=== PATIENT | male | born 1940 | race Caucasian/White ===

== ENCOUNTER 2018-12-22 08:07 | Emergency (ER) | payer MEDICARE, BC ==
[~2018-12-22] VITALS: Ht 182.9 cm; Wt 83.9 kg
--- NOTE | 2018-12-22 08:19 | NUR ---
PT IS IN ROOM #2B. DR CAGE EVALUATED THE PT.
[2018-12-22] MEDS ORDERED: RIVA6CAP5 PO (08:22)
[2018-12-22] MEDS ORDERED: NEOMY/BACITRA/POLYMYXIN B OINT UD PACKET TP ONE (08:36)
--- NOTE | 2018-12-22 11:01 | NUR ---
PT WAS D/C TO HOME . D/C INSTRUCTIONS GIVEN TO THE PT AND TO HIS SON.
[2018-12-22 11:11] VITALS: BP 129/78
== END 2018-12-22 11:14 | disposition home or self-care (01) ==
LOC: ER 08:07
DX: M25.551 Pain in right hip (principal); M25.521 Pain in right elbow; E11.9 Type 2 diabetes mellitus without complications; Z79.899 Other long term (current) drug therapy; W06.XXXA Fall from bed, initial encounter; Y93.89 Activity, other specified; Y92.89 Other specified places as the place of occurrence of the external cause; Y99.8 Other external cause status
CPT/HCPCS: 70450; 72192; 73080; 73502; A4663

== ENCOUNTER 2018-12-23 17:00 | Inpatient (IN) | payer MEDICARE, BC ==
[~2018-12-23] VITALS: Ht 185.4 cm; Wt 85.7 kg
[~2018-12-23 17:00] MED LIST: RIVA6CAP5 PO
--- NOTE | 2018-12-23 17:13 | NUR ---
pt denies pt having diabetes.
[2018-12-23] MEDS ORDERED: IV NORMAL SALINE 500 ML BAG IV ONE (17:15)
--- NOTE | 2018-12-23 17:21 | NUR ---
Nursing Accounts Clerk contacted, requested 1:1 sitter for the evening due to the patient experiencing multiple falls today and yesterday requiring 2 hospital visits in 24 hours.
[2018-12-23 17:36] LABS: BASOPHILS % (AUTO) 0.3 % (0.0-2.0); EOSINOPHILS # (AUTO) 0.1 K/uL (0.0-0.7); EOSINOPHILS % (AUTO) 0.7 % (0.0-7.0); HEMATOCRIT 37.5 % (36.7-47.1); HEMOGLOBIN 12.7 g/dL (12.5-16.3); LYMPHOCYTES % (AUTO) 11.9 % (20.5-51.5); MEAN CORPUSCULAR HEMOGLOBIN 30.5 uug (23.8-33.4); MEAN CORPUSCULAR HGB CONC 34 g/dL (32.5-36.3); MEAN CORPUSCULAR VOLUME 89.8 fL (73.0-96.2); MONOCYTES # (AUTO) 0.6 K/uL (2.0-10.0); MONOCYTES % (AUTO) 6.6 % (0.0-11.0); NEUTROPHILS % (AUTO) 80.5 % (38.5-71.5); PLATELET COUNT (AUTO) 106 K/uL (152-348); RED BLOOD CELL COUNT(AUTO) 4.17 MIL/uL (4.06-5.63); WHITE BLOOD COUNT (AUTO) 8.7 K/uL (3.6-10.2)
[2018-12-23 17:48] LABS: CARBON DIOXIDE 31 mmol/L (21-32); CHLORIDE 105 mmol/L (98-107); CREATININE 1.2 mg/dL (0.6-1.3); GLUCOSE 178 mg/dL (74-106); POTASSIUM 4.2 mmol/L (3.5-5.1); UREA NITROGEN, BLOOD 21 mg/dL (7-18)
[2018-12-23 17:49] LABS: *BILIRUBIN,URIN NEGATIVE (NEGATIVE); *BLOOD, URINE 2+ (NEGATIVE); *CLARITY,URINE CLEAR (CLEAR); *COLOR,URINE DARK YELLOW (YELLOW); *KETONES,URINE NEGATIVE (NEGATIVE); *UROBILINOGEN,URINE 0.2 E.U./dl (NORMAL); LEUKOCYTE ESTERASE ,URINE NEGATIVE (NEGATIVE); NITRITE, URINE NEGATIVE (NEGATIVE); UGLUCOSE NEGATIVE (NEGATIVE)
--- NOTE | 2018-12-23 17:52 | NUR ---
1749- Patient voided by urinal, urine specimen was sent to lab.
[2018-12-23 17:54] LABS: ALANINE AMINOTRANSFERASE 30 U/L (16-63); ALKALINE PHOSPHATASE 82 U/L (50-136); ASPARTATE AMINOTRANSFERASE 20 U/L (15-37); BILIRUBIN,DIRECT 0.2 mg/dL (0.0-0.2); BILIRUBIN,TOTAL 0.6 mg/dL (0.2-1.0); TOTAL PROTEIN, SERUM 7.1 g/dL (6.4-8.2)
[2018-12-23 18:01] LABS: BACTERIA,URINE FEW /HPF (NONE SEEN); SQUAMOUS EPITHELIAL CELL,UR FEW /HPF (NONE SEEN); WBC,URINE NONE SEEN /HPF (0-3)
[2018-12-23 18:14] LABS: THYROID STIMULATING HORMONE 0.871 mIU/mL (0.358-3.740)
--- NOTE | 2018-12-23 18:30 | NUR ---
1:1 sitter (2/2 frequent falls prior to arrival to ER) is coming afetr 1900 per nursing substation electrician supervisor Pa. Patient will transfer to 3rd floor after 1900.
--- NOTE | 2018-12-23 19:14 | NUR ---
still for transfer to 3rd floor med-surgical floor, endorsed to AALIYAH Lopez
--- NOTE | 2018-12-23 19:30 | NUR ---
RECEIVED REPORT FROM RNMACIEJ. PATIENT LYING IN BED AND CONFUSED. NO SIGNS OF ACUTE DISTRESS. 1:1 SITTER AT BEDSIDE FOR SAFETY OBSERVATION, BED IN LOWEST POSITION, BED ALARM ON, CALL LIGHT WITHIN REACH, SIDE RAILS UP X2. COMFORT MEASURES PROVIDED. WILL CONTINUE CARE.
--- NOTE | 2018-12-23 21:30 | NUR ---
ATTEMPTED TO ADMINISTER TEMAZEPAM TO PATIENT. PATIENT WAS BEING COMBATIVE, AGITATED, CUSSING, AND YELLING TO STAFF MEMBERS REFUSING TO TAKE MEDICATION. MEDICATION WASTED.
[2018-12-23] MEDS ORDERED: HYDROCODONE/APAP 5-325MG TABLET PO PRN (21:45)
[2018-12-23] MEDS ORDERED: ONDANSETRON 4 MG/2 ML VIAL IV PRN (21:45)
[2018-12-23] MEDS ORDERED: ACETAMINOPHEN 325 MG TABLET PO PRN (21:45)
[2018-12-23] MEDS ORDERED: MAGNESIUM HYDROXIDE 30 ML LIQUID UDC PO PRN (21:45)
[2018-12-23] MEDS: TEMAZEPAM 7.5 MG CAPSULE PO PRN (21:59)
[2018-12-23] MEDS: LORAZEPAM 2 MG/1 ML VIAL IV PRN (22:10)
--- NOTE | 2018-12-23 22:15 | NUR ---
OBTAINED ORDER AND ADMINISTERED ATIVAN 1ML. PATIENT IS CONFUSED, BEING COMBATIVE WITH 1:1 SITTER, NURSES, AND RECTANGULAR TANK COOPER'S, AGGRESSIVE, VERBALLY ABUSIVE, CURSING, GETTING OUT OF BED AND ATTEMPTING TO THROW CHAIR AT CARETAKERS.
[2018-12-24] VITALS (10 sets, daily range): BP systolic 97–177; BP diastolic 54–137
--- NOTE | 2018-12-24 05:42 | NUR ---
PATIENT SLEEPING INTERMITTENTLY. NO SIGNS OF ACUTE DISTRESS NOTED. IV INTACT. SAFETY AND COMFORT MEASURES PROVIDED. PRESCRIBED MEDICATION GIVEN AND TOLERATED WELL. WILL ENDORSE ACCORDINGLY TO ONCOMING NURSE FOR CONTINUITY OF CARE.
[2018-12-24] MEDS ORDERED: Z GUARD REMEDY PASTE 57 GM TUBE TOP PRN ×2 (05:45→19:30)
[2018-12-24] MEDS: PANTOPRAZOLE SODIUM 40 MG TABLET.DR PO SCH (06:56)
[2018-12-24 07:02] LABS: THYROID STIMULATING HORMONE 1.056 mIU/mL (0.358-3.740)
[2018-12-24 07:05] LABS: BASOPHILS % (AUTO) 0.1 % (0.0-2.0); EOSINOPHILS # (AUTO) 0.1 K/uL (0.0-0.7); EOSINOPHILS % (AUTO) 1.4 % (0.0-7.0); HEMATOCRIT 36.9 % (36.7-47.1); HEMOGLOBIN 12.6 g/dL (12.5-16.3); LYMPHOCYTES % (AUTO) 14.8 % (20.5-51.5); MEAN CORPUSCULAR HEMOGLOBIN 30.4 uug (23.8-33.4); MEAN CORPUSCULAR HGB CONC 34 g/dL (32.5-36.3); MEAN CORPUSCULAR VOLUME 89.3 fL (73.0-96.2); MONOCYTES # (AUTO) 0.5 K/uL (2.0-10.0); MONOCYTES % (AUTO) 7.4 % (0.0-11.0); NEUTROPHILS # (AUTO) 4.9 K/uL (1.8-8.9); NEUTROPHILS % (AUTO) 76.3 % (38.5-71.5); PLATELET COUNT (AUTO) 100 K/uL (152-348); RED BLOOD CELL COUNT(AUTO) 4.14 MIL/uL (4.06-5.63)
[2018-12-24 07:21] LABS: ALANINE AMINOTRANSFERASE 29 U/L (16-63); ALKALINE PHOSPHATASE 68 U/L (50-136); ASPARTATE AMINOTRANSFERASE 30 U/L (15-37); BILIRUBIN,TOTAL 0.8 mg/dL (0.2-1.0); CARBON DIOXIDE 29 mmol/L (21-32); CHLORIDE 105 mmol/L (98-107); CHOLESTEROL 150 mg/dL (<200); CREATININE 1.1 mg/dL (0.6-1.3); GLUCOSE 161 mg/dL (74-106); HDL CHOLESTEROL 49 mg/dL (40-60); MAGNESIUM 1.8 mg/dL (1.8-2.4); PHOSPHOROUS 2.8 mg/dL (2.5-4.9); TOTAL PROTEIN, SERUM 6.5 g/dL (6.4-8.2); TRIGLYCERIDES 55 MG/DL (30-150); UREA NITROGEN, BLOOD 17 mg/dL (7-18); WHITE BLOOD COUNT (AUTO) 6.4 K/uL (3.6-10.2)
--- NOTE | 2018-12-24 07:21 | NUR ---
Received a call from lab regarding a critical lab value for patient, TROPONIN is 3.612. Contacted Dr. Landa to relay critical lab at 0710. Noted patient's vital signs are stable and no complaints of pain made throughout the shift. Another call made to Dr. Landa to relay critical lab value. Awaiting call back.
--- NOTE | 2018-12-24 07:42 | NUR ---
Critical lab value of Troponin 3.612 endorsed to Bessy, awaiting call back from MD for possible orders.
[2018-12-24] MEDS: RIVASTIGMINE TARTRATE 3 MG CAPSULE PO SCH ×2 (08:43→17:37)
[2018-12-24] MEDS: ASPIRIN 325 MG TABLET PO SCH ×2 (08:43→09:00)
[2018-12-24] MEDS ORDERED: RIVASTIGMINE TARTRATE 6 MG PO SCH (09:00)
--- NOTE | 2018-12-24 09:30 | NUR ---
RECEIVED ORDERS FOR HEPARIN DRIP AND INFUSION.
[2018-12-24] MEDS ORDERED: HEPARIN SODIUM,PORCINE 5,000 UNITS/ML VIAL IV ONE (10:30)
[2018-12-24] MEDS: LORAZEPAM 2 MG/1 ML VIAL IV PRN ×2 (10:46→19:50)
[2018-12-24] MEDS: HEPARIN/D5W DRIP 500 ML IV PRN (10:58)
[2018-12-24] MEDS ORDERED: HEPARIN SODIUM,PORCINE 5,000 UNITS/ML VIAL IV PRN (11:15)
--- NOTE | 2018-12-24 11:16 | NUR ---
NOTIFIED OF INCREASED TROPONIN
--- NOTE | 2018-12-24 13:22 | NUR ---
RECIEVED PT TRANSFER FROM [facility] VIA BED ACCOMPANIED BY RN AND SOUBRETTE. PT IS CALM AND SLEEPING BUT AROUSABLE. CONNECTED TO MONITOR. SR NO ECTOPY.
--- NOTE | 2018-12-24 13:30 | NUR ---
patient transferred to icu, iv heparin running at 1200units/hr, vitals stable and no distress noted at the time of transfer. Report called to Nurse Sneed prior to transfer.
--- NOTE | 2018-12-24 16:30 | NUR ---
SEEN AND EXAMINED BY DR VARGAS WITHOUT ANY ORDERS.
--- NOTE | 2018-12-24 17:30 | NUR ---
PT'S SBP IS ABOVE 150 BUT PT DENIES ANY DIZZINESS OR HEADACHE. MEDICATED WITH NORVASC 2.5MG SLOW IVP ORDERED.
[2018-12-24] MEDS: ENALAPRILAT DIHYDRATE 1.25 MG/1 ML VIAL IV PRN ×2 (17:36→21:11)
--- NOTE | 2018-12-24 17:50 | NUR ---
LATEST PTT IS 65. NO HEAPRIN CHANGE IN THE HEPARIN DRIP PER HEPARIN PROTOCOL. ORDERED PTT AT 0600AM.
--- NOTE | 2018-12-24 19:30 | NUR ---
RECEIVED PT EXTREMELY AGITATED, KICKING & HITTING. DR BUTT WAS HERE & SEEN THE PT W/ ORDER FOR 1:1 SITTER. ON O2 @ 2LNC W/ O2 SAT OF 98%. ON HEPARIN DRIP @ 1200 UNITS/HR VIA MIDLINE ON SAMIA. MITTEN & SOFT RESTRAINTS APPLIED SANIA. WATCHED PT CLOSELY.
[2018-12-24] MEDS: DOCUSATE SODIUM 100 MG CAPSULE PO SCH (20:38)
[2018-12-24] MEDS: ATORVASTATIN 40 MG TABLET PO SCH (20:38)
[2018-12-24] MEDS: METOPROLOL TARTRATE 25 MG TABLET PO SCH (20:40)
[2018-12-24] MEDS: Z GUARD REMEDY PASTE 57 GM TUBE TOP SCH (20:40)
--- NOTE | 2018-12-24 20:45 | NUR ---
CLINICAL PHARMACY NOTE:VANCOMYCIN DOSING Request for vancomycin dosing on 78 y/o male 185.4cm 86.7kg for documented infection Temp 98.6 BUN 17 Scr 1.1 WBC 6.4 also on Rocephin, Start vancomycin 1250mg ivpb q16h estimated trough 15. Will order trough level prior to 4 th dose . Will continue to monitor.
[2018-12-24] MEDS: CEFTRIAXONE 1 G in IV DEXTROSE 5% 50 ML IV SCH (21:15)
--- NOTE | 2018-12-24 21:25 | NUR ---
INSERTED ACEVEDO CATH FR # 16 W/O DIFFICULTY. ORDERED. URINE SPEC. SENT TO LAB FOR C&S.
[2018-12-24] MEDS ORDERED: VANCOMYCIN IV 1,250 MG in IV DEXTROSE 5% 500 ML IV SCH (22:00)
[2018-12-25] VITALS (22 sets, daily range): BP systolic 90–169; BP diastolic 40–101
--- NOTE | 2018-12-25 | NUR ---
BEDBATH GIVEN, REPOSITIONED ON HIS SIDE W/ HOB ELEVATED.
[2018-12-25] MEDS: LORAZEPAM 2 MG/1 ML VIAL IV PRN ×3 (04:07→22:58)
--- NOTE | 2018-12-25 04:07 | NUR ---
MEDICATED W/ ATIVAN 1MG IVP FOR SEVERE AGITATION.
--- NOTE | 2018-12-25 05:00 | NUR ---
SLEEPING @ THIS TIME. V/S STABLE.
[2018-12-25 05:19] LABS: BASOPHILS % (AUTO) 0.2 % (0.0-2.0); EOSINOPHILS # (AUTO) 0.1 K/uL (0.0-0.7); EOSINOPHILS % (AUTO) 0.9 % (0.0-7.0); HEMATOCRIT 35.1 % (36.7-47.1); LYMPHOCYTES # (AUTO) 0.9 K/uL (20.0-40.0); MEAN CORPUSCULAR HEMOGLOBIN 30.3 uug (23.8-33.4); MEAN CORPUSCULAR HGB CONC 34 g/dL (32.5-36.3); MEAN CORPUSCULAR VOLUME 88.6 fL (73.0-96.2); MONOCYTES # (AUTO) 0.4 K/uL (2.0-10.0); MONOCYTES % (AUTO) 6.2 % (0.0-11.0); NEUTROPHILS # (AUTO) 5.2 K/uL (1.8-8.9); NEUTROPHILS % (AUTO) 78.7 % (38.5-71.5); PLATELET COUNT (AUTO) 102 K/uL (152-348); RED BLOOD CELL COUNT(AUTO) 3.97 MIL/uL (4.06-5.63); WHITE BLOOD COUNT (AUTO) 6.6 K/uL (3.6-10.2)
[2018-12-25 05:29] LABS: ALANINE AMINOTRANSFERASE 29 U/L (16-63); ALKALINE PHOSPHATASE 65 U/L (50-136); ASPARTATE AMINOTRANSFERASE 40 U/L (15-37); BILIRUBIN,TOTAL 0.7 mg/dL (0.2-1.0); CARBON DIOXIDE 29 mmol/L (21-32); CHLORIDE 103 mmol/L (98-107); CREATININE 1.1 mg/dL (0.6-1.3); GLUCOSE 192 mg/dL (74-106); MAGNESIUM 1.8 mg/dL (1.8-2.4); PHOSPHOROUS 3.5 mg/dL (2.5-4.9); POTASSIUM 3.9 mmol/L (3.5-5.1); TOTAL PROTEIN, SERUM 6.4 g/dL (6.4-8.2); UREA NITROGEN, BLOOD 16 mg/dL (7-18)
--- NOTE | 2018-12-25 07:30 | NUR ---
RECIEVED PT VERY SOUND ASLEEP IN BED, HOB UP 30DEGREES. COLOR IS GOOD. HR IS SR AND NO C/O CHEST PAINS. AROUSABLE TO CALL. HEPARIN DRIP IS IN PROGRESS RUNNING AT 1200UNITS/HR. PTT IS 55.6. NO CHANGE IN THE INFUSION RATE PER HEPARIN PROTOCOL . PTT IN THE MORNING. 1:1 SITTER IN THE ROOM.
[2018-12-25] MEDS: PANTOPRAZOLE SODIUM 40 MG TABLET.DR PO SCH (07:49)
[2018-12-25] MEDS: METOPROLOL TARTRATE 25 MG TABLET PO SCH ×2 (09:00→20:04)
[2018-12-25] MEDS: HEPARIN/D5W DRIP 500 ML IV PRN (10:00)
[2018-12-25] MEDS: Z GUARD REMEDY PASTE 57 GM TUBE TOP SCH ×2 (10:07→20:05)
[2018-12-25] MEDS: RIVASTIGMINE TARTRATE 3 MG CAPSULE PO SCH ×2 (10:07→16:20)
[2018-12-25] MEDS: ASPIRIN EC 81 MG TABLET.DR PO SCH (10:08)
--- NOTE | 2018-12-25 13:00 | NUR ---
PT ATE GOOD LUNCH, ABLE TO SWALLOW GOOD. AND WENT BACK TO SLEEP. REPOSITION AT FREQUENT INTERVALS.
--- NOTE | 2018-12-25 16:00 | NUR ---
PT IS BECOMING VERY AGITATED AND PULLING OUT HIS TUBES AND WANTED TO GET OUT OF BED. MEDICATED WITH ATIVAN 1MG SLOW IVP ORDERED. CALLED CODE CELESTINA. PT IS VERY STRONG. APPLIED SOFT RESTRAINT AT THIS TIME.
--- NOTE | 2018-12-25 17:33 | NUR ---
CLINICAL PHARMACY NOTE:VANCOMYCIN DOSING Continue for vancomycin dosing on 78 y/o male 185.4cm 86.7kg for clinical sepsis Temp 98.2 BUN 16 Scr 1.1 WBC 6.6 also on zosyn, continue vancomycin 1250mg ivpb q16h estimated trough 15. Will order trough level prior to 4 th dose . Will continue to monitor.
--- NOTE | 2018-12-25 18:30 | NUR ---
PT'S BP IS UP IN THE 170SYSTOLIC. MEDICATED WITH VASOTEC 2.5MG SLOW IVP VIA RIGHT FA ORDERED.
[2018-12-25] MEDS: ENALAPRILAT DIHYDRATE 1.25 MG/1 ML VIAL IV PRN (18:37)
[2018-12-25] MEDS: VANCOMYCIN IV 1,250 MG in IV DEXTROSE 5% 500 ML IV SCH (18:37)
--- NOTE | 2018-12-25 19:00 | NUR ---
Received patient in bed with restraints. Patient with 1:1 sitter at bedside. Patient has heparin running via iv. Patient agitated and confused. Patient trying to get out of bed and remove mittens. holman catheter intact and patent. will continue to monitor closely.
[2018-12-25] MEDS: ATORVASTATIN 40 MG TABLET PO SCH (20:04)
[2018-12-25] MEDS: DOCUSATE SODIUM 100 MG CAPSULE PO SCH (20:05)
[2018-12-25] MEDS: CEFTRIAXONE 1 G in IV DEXTROSE 5% 50 ML IV SCH (20:18)
[2018-12-26] VITALS (17 sets, daily range): BP systolic 97–170; BP diastolic 43–83
[2018-12-26 05:23] LABS: BASOPHILS % (AUTO) 0.2 % (0.0-2.0); EOSINOPHILS # (AUTO) 0.1 K/uL (0.0-0.7); EOSINOPHILS % (AUTO) 1.7 % (0.0-7.0); HEMATOCRIT 33.6 % (36.7-47.1); HEMOGLOBIN 11.6 g/dL (12.5-16.3); LYMPHOCYTES # (AUTO) 0.7 K/uL (20.0-40.0); LYMPHOCYTES % (AUTO) 11.5 % (20.5-51.5); MEAN CORPUSCULAR HEMOGLOBIN 30.7 uug (23.8-33.4); MEAN CORPUSCULAR HGB CONC 35 g/dL (32.5-36.3); MEAN CORPUSCULAR VOLUME 88.4 fL (73.0-96.2); MONOCYTES # (AUTO) 0.4 K/uL (2.0-10.0); MONOCYTES % (AUTO) 6.3 % (0.0-11.0); NEUTROPHILS # (AUTO) 4.8 K/uL (1.8-8.9); NEUTROPHILS % (AUTO) 80.3 % (38.5-71.5); PLATELET COUNT (AUTO) 109 K/uL (152-348)
[2018-12-26 05:40] LABS: CARBON DIOXIDE 28 mmol/L (21-32); CHLORIDE 104 mmol/L (98-107); CREATININE 1.1 mg/dL (0.6-1.3); GLUCOSE 208 mg/dL (74-106); MAGNESIUM 1.8 mg/dL (1.8-2.4); PHOSPHOROUS 3.6 mg/dL (2.5-4.9); POTASSIUM 3.7 mmol/L (3.5-5.1); UREA NITROGEN, BLOOD 16 mg/dL (7-18)
[2018-12-26] MEDS: HEPARIN/D5W DRIP 500 ML IV PRN (06:50)
[2018-12-26] MEDS: PANTOPRAZOLE SODIUM 40 MG TABLET.DR PO SCH (07:07)
--- NOTE | 2018-12-26 07:30 | NUR ---
SITTER AT THE BEDSIDE. PT IS SOUND SLEEPING WELL.
[2018-12-26] MEDS: METOPROLOL TARTRATE 25 MG TABLET PO SCH ×2 (09:00→20:56)
[2018-12-26] MEDS: RIVASTIGMINE TARTRATE 3 MG CAPSULE PO SCH ×2 (09:43→18:36)
[2018-12-26] MEDS: ASPIRIN EC 81 MG TABLET.DR PO SCH (09:43)
[2018-12-26] MEDS: Z GUARD REMEDY PASTE 57 GM TUBE TOP SCH ×2 (09:43→20:38)
[2018-12-26] MEDS: VANCOMYCIN IV 1,250 MG in IV DEXTROSE 5% 500 ML IV SCH (11:15)
--- NOTE | 2018-12-26 12:00 | NUR ---
PT STARTED TO BE VERY AGITATED. MEDICATED WITH ATIVAN 1MG SLOW IVP AND PT IS GETTING DROWSY AND SLEEPY.
[2018-12-26] MEDS: LORAZEPAM 2 MG/1 ML VIAL IV PRN (12:08)
--- NOTE | 2018-12-26 13:08 | NUR ---
CLINICAL PHARMACY NOTE:VANCOMYCIN DOSING S: To Continue vancomycin dosing on 78 y/o male patient for clinical sepsis O: Temp 98.7 BUN 16 Scr 1.1 WBC 6.0 ht 185 cm wt 85.7 kg Plan Will continue same dose of continue vancomycin 1250mg ivpb q16h for today. 3rd dose tomorrow at 0200. Will order trough level prior to 4 th dose (not yet ordered) . Will monitor renal function & adjust the dose if needed. Will continue to monitor.
[2018-12-26] MEDS ORDERED: DEXTROSE 50% 50 ML DISP.SYRIN IV PRN (14:15)
[2018-12-26] MEDS ORDERED: ZIPRASIDONE MESYLATE 20 MG VIAL IM PRN (14:45)
--- NOTE | 2018-12-26 15:30 | NUR ---
SEEN AND EXAMINED BY DR AMIN WITH NEW ORDERS. HEPARIN DRIP IS DISCONTINUED ORDERED. OKEYED TO DOWNGRADE THE PT TO TELEMETRY.
[2018-12-26] MEDS: BLOOD SUGAR DIAGNOSTIC 1 EACH STRIP VI SCH ×2 (16:30→20:53)
--- NOTE | 2018-12-26 18:00 | NUR ---
AND DAUGHTER AT THE BEDSIDE.
--- NOTE | 2018-12-26 18:30 | NUR ---
PT IS AGITATED AGAIN. MEDICATED WITH GEODON 3MG IM ON THE RIGHT DELTOID ORDERED.
--- NOTE | 2018-12-26 20:00 | NUR ---
RECEIVED PT. AGITATED & RESTLESS. VERBALLY RESPONSIVE BUT SEVERELY CONFUSED & ORIENTED. ON O2 @ 2LNC W/ O2 SAT OF 100%. MIDLINE ON SAMIA & HEP LOCK ON RFA INTACT & PATENT. BP- 177/75, VASOTEC 2.5 GIVEN IVP SLOWLY. AFEBRILE.C-SCOPE SR. REPOSITIONED IN BED W/ HOB ELEVATED.
[2018-12-26] MEDS: ENALAPRILAT DIHYDRATE 1.25 MG/1 ML VIAL IV PRN (20:13)
[2018-12-26] MEDS: CEFTRIAXONE 1 G in IV DEXTROSE 5% 50 ML IV SCH (20:38)
[2018-12-26] MEDS: INSULIN REGULAR, HUMAN 300 UNIT/3 ML VIAL SQ PRN (20:52)
[2018-12-26] MEDS: ATORVASTATIN 40 MG TABLET PO SCH (20:56)
[2018-12-26] MEDS: DOCUSATE SODIUM 100 MG CAPSULE PO SCH (20:56)
[2018-12-26] MEDS ORDERED: CULTURELLE CAPSULE PO SCH (21:00)
--- NOTE | 2018-12-26 22:00 | NUR ---
PT IS QUITE & SLEEPING THIS TIME.BP- 145/65.
[2018-12-26] MEDS ORDERED: ENALAPRILAT DIHYDRATE 2.5 MG/2 ML VIAL IV PRN (22:15)
[2018-12-27] VITALS: BP 140/65
[2018-12-27] MEDS: VANCOMYCIN IV 1,250 MG in IV DEXTROSE 5% 500 ML IV SCH ×2 (01:32→18:18)
[2018-12-27 04:16] VITALS: BP 162/77
[2018-12-27] MEDS: ENALAPRILAT DIHYDRATE 1.25 MG/1 ML VIAL IV PRN (04:16)
[2018-12-27 04:26] VITALS: BP 125/55
--- NOTE | 2018-12-27 04:29 | NUR ---
TRANSFERED TO 306 VIA BED. REPORT GIVEN TO ADRIEL FISCHER.
--- NOTE | 2018-12-27 04:30 | NUR ---
RECEIVED PT FROM CCU .PT TRANSFERED TO [facility] VIA BED AT 0415H . PT STABLE AND IN NO ACUTE DISTRESS. PT IV INTACT. PT ON HEART MONITOR. PT ON SINUS RYTHM. PREVIOUS SKIN ASSESSMENT THE SAME BUT ADDITIONAL BRUISE ON THE LEFT ARM SPECIFICALLY ON THE LEFT UPPER ARM . SAFETY AND COMFORT PROVIDED.WILL CONTINUE TO MONITOR.
[2018-12-27] MEDS: LORAZEPAM 2 MG/1 ML VIAL IV PRN ×3 (04:49→21:55)
--- NOTE | 2018-12-27 05:25 | NUR ---
PT WAS GIVEN ATIVAN BECAUSE PT ANXIOUS AND TRYING TO GET OUT OF THE BED. PT TOLERATED THE MEDICATION WELL. SAFETY AND COMFORT PROVIDED.WILL CONTINUE TO MONITOR.
[2018-12-27] MEDS: PANTOPRAZOLE SODIUM 40 MG TABLET.DR PO SCH (06:38)
[2018-12-27] MEDS: BLOOD SUGAR DIAGNOSTIC 1 EACH STRIP VI SCH ×4 (06:38→22:16)
--- NOTE | 2018-12-27 06:46 | NUR ---
PT SLEPT INTERMITTENTLY. PT SHOWS NO SIGNS OF ACUTE DISTRESS. IV INTACT. ACEVEDO INTACT. PRESCRIBED MEDICATION GIVEN AND PT TOLERATED IT WELL. SAFETY AND COMFORT PROVIDED. ALL NEEDS ARE MET. WILL ENDORSE ACCORDINGLY TO INCOMING NURSE FOR CONTINUITY OF CARE.
[2018-12-27] MEDS: INSULIN REGULAR, HUMAN 300 UNIT/3 ML VIAL SQ PRN ×4 (08:07→22:06)
[2018-12-27] MEDS: METOPROLOL TARTRATE 25 MG TABLET PO SCH ×2 (08:14→21:51)
[2018-12-27] MEDS: ASPIRIN EC 81 MG TABLET.DR PO SCH ×2 (08:23→09:00)
[2018-12-27] MEDS: RIVASTIGMINE TARTRATE 3 MG CAPSULE PO SCH ×3 (08:25→16:35)
[2018-12-27] MEDS: Z GUARD REMEDY PASTE 57 GM TUBE TOP SCH ×2 (08:26→21:52)
--- NOTE | 2018-12-27 09:25 | NUR ---
PATIENT IS TOO SLEEPY AND UNABLE TO GET HIM TO SAFELY SWALLOW HIS MEDICATIONS AT THIS TIME .MEDS HELD AND WILL CONTINUE TO OBSERVE REMAIN ON ONE ON ONE SITTER FOR SAFETY WITH NO BEHAVIORAL ISSUES AT THIS TIME VERY CONFUSED WHEN AWAKE WILL CONTINUE TO OBSERVE.
[2018-12-27 10:31] VITALS: BP 100/45
--- NOTE | 2018-12-27 12:10 | NUR ---
BLOOD SUGAR IS 134 CALLS FOR 2 UNITS OF REGULAR INSULIN BUT PATIENT DID NOT EAT BREAKFAST THIS AM WAS TOO SEDATED WAS ONLY ABLE TO GIVE HIM SOME JUICE SO BLOOD SUGAR HELD AT THIS TIME WILL REEVALUATE TO SEE IF PATIENT WILL BE AWAKE AND ALERT ENOUGH TO SAFELY EAT BEFORE INSULIN WILL BE GIVEN ANNE PROFESSIONAL SYSTEM ADMINISTRATOR AWARE THAT PATIENT WAS VERY AGITATED AND RESTLESS EARLY THIS AM ON THE PREVIOUS AND WAS GIVEN ATIVAN AND NOW HE IS TOO SEDATED AND SHE STATED TO HAVE THE PSYCHIATRIST TO EVALUATE PATIENT AND NOTED
--- NOTE | 2018-12-27 12:24 | NUR ---
CALLED AND NOTIFIED DR GILBERTO ALCALA PSYCH EVCARLEY SPOKE WITH HIM AND HE STATED WILL SEE PATIENT IN AM.
--- NOTE | 2018-12-27 13:05 | NUR ---
CLINICAL PHARMACY NOTE:VANCOMYCIN DOSING S: To Continue vancomycin dosing on 78 y/o male patient for clinical sepsis O: Temp 9827 BUN 16 (6) Scr 1.1 (6/2) WBC 6.0 (6/) Vanco trough level : pending (ordered for today at 1730) ht 185 cm wt 85.7 kg Plan Will continue same dose of vancomycin 1250mg ivpb q16h for today. 3rd dose today at 0200. Will order trough level prior to 4 th dose (ordered for today at 1730). Pharmacy shall review the level & adjust the dose if needed. Will monitor renal function & adjust the dose if needed. Will continue to monitor. Addendum: 12/27/18 at 1806 by KOURTNEY CASTILLO VANCOMYCIN TROUGH LEVEL 14.8 CONTINUE SAME DOSE 1,250MG VANCOMYCIN Q16H
--- NOTE | 2018-12-27 13:14 | NUR ---
PATIENT IS AWAKE AT THIS TIME AND BEING SPOON FED HIS LUNCH SO INSULIN GIVEN PER SLIDING SCALE AT THIS TIME.
--- NOTE | 2018-12-27 13:56 | NUR ---
PATIENT IS ATTEMPTING TO GET OUT OF BED AT THIS TIME UNATTENDED ASSISTED BACK INTO BED REDIRECTED STATED GOING TO 21 CONFUSED AND DISORIENTED MADE COMFORTABLE AND WILL CONTINUE TO OBSERVE AND PROVIDE SAFE AND THERAPEUTIC ENVIRONMENT CONTINUE TO REQUIRE ONE TO ONE SITTER OBSERVATION FOR SAFETY.
--- NOTE | 2018-12-27 14:48 | NUR ---
PATIENT IS AWAKE CONFUSED AND DISORIENTED AGITATED AGGRESSIVE COMBATIVE KICKED THIS WRITTER AND ALSO KICKED HIS SITTER WHO IS TRYING TO MAKE SURE HE IS SAFE AND STAYING IN BED UNABLE TO REDIRECT MEDICATED WITH ATIVAN ORDERED MADE COMFORTABLE AND WILL CONTINUE TO OBSERVE.
[2018-12-27 16:30] VITALS: BP 144/66
--- NOTE | 2018-12-27 18:32 | NUR ---
PATIENT IS AGITATED COMBATIVE KICKING GRABBING UNABLE TO REDIRECT DR BUTT NOTIFIED WITH ORDERS FOR MITTEN AND APPLIED
--- NOTE | 2018-12-27 19:20 | NUR ---
RECEIVED PT AWAKE, ALERT AND ORIENTEDX1. SITTER AT BEDSIDE. PT SHOWS NO SIGNS OF ACUTE DISTRESS. IV INTACT. SAFETY AND COMFORT PROVIDED. ACEVEDO INTACT. WILL CONTINUE TO MONITOR.
[2018-12-27] MEDS: ATORVASTATIN 40 MG TABLET PO SCH (21:38)
[2018-12-27] MEDS: DOCUSATE SODIUM 100 MG CAPSULE PO SCH (21:38)
[2018-12-27] MEDS: CEFTRIAXONE 1 G in IV DEXTROSE 5% 50 ML IV SCH (21:39)
[2018-12-28 04:00] VITALS: BP 133/57
[2018-12-28 06:11] LABS: BASOPHILS % (AUTO) 0.3 % (0.0-2.0); EOSINOPHILS # (AUTO) 0.1 K/uL (0.0-0.7); EOSINOPHILS % (AUTO) 1.6 % (0.0-7.0); HEMATOCRIT 36.7 % (36.7-47.1); HEMOGLOBIN 12.9 g/dL (12.5-16.3); LYMPHOCYTES # (AUTO) 1.1 K/uL (20.0-40.0); LYMPHOCYTES % (AUTO) 15.9 % (20.5-51.5); MEAN CORPUSCULAR HEMOGLOBIN 30.7 uug (23.8-33.4); MEAN CORPUSCULAR HGB CONC 35 g/dL (32.5-36.3); MEAN CORPUSCULAR VOLUME 87.2 fL (73.0-96.2); MONOCYTES # (AUTO) 0.5 K/uL (2.0-10.0); NEUTROPHILS % (AUTO) 74.2 % (38.5-71.5); PLATELET COUNT (AUTO) 125 K/uL (152-348); WHITE BLOOD COUNT (AUTO) 6.8 K/uL (3.6-10.2)
[2018-12-28 06:24] LABS: CARBON DIOXIDE 29 mmol/L (21-32); CHLORIDE 107 mmol/L (98-107); CREATININE 1.1 mg/dL (0.6-1.3); GLUCOSE 157 mg/dL (74-106); MAGNESIUM 1.8 mg/dL (1.8-2.4); PHOSPHOROUS 3.8 mg/dL (2.5-4.9); UREA NITROGEN, BLOOD 14 mg/dL (7-18)
[2018-12-28] MEDS: PANTOPRAZOLE SODIUM 40 MG TABLET.DR PO SCH (06:43)
[2018-12-28] MEDS: BLOOD SUGAR DIAGNOSTIC 1 EACH STRIP VI SCH ×4 (06:43→21:30)
--- NOTE | 2018-12-28 06:50 | NUR ---
PT SLEPT THROUGHOUT THE SHIFT. PT SHOWS NO SIGNS OF ACUTE DISTRESS. SITTER AT BEDSIDE. PT GIVEN ONE ATIVEN FOR PT BEING ANXIOUS. PRESCRIBED MEDICATION GIVEN AND PT TOLERATED IT WELL. SAFETY AND COMFORT PROVIDED. ALL NEEDS ARE MET. WILL ENDORSE ACCORDINGLY TO INCOMING NURSE FOR CONTINUITY OF CARE. Addendum: 12/28/18 at 0736 by CHACHO SEE RN wrong pt
--- NOTE | 2018-12-28 06:51 | NUR ---
PT SLEPT INTERMITTENTLY. PT SHOWS NO SIGNS OF ACUTE DISTRESS. SITTER AT BEDSIDE. PT GIVEN ONE ATIVAN FOR PT BEING ANXIOUS. PT EVERYTIME WHEN HE AWAKES TRIES TO GET OUT OF THE BED, TAKE OUT THE BLANKET, PULL OUT HIS ACEVEDO CATH AND IV. PRESCRIBED MEDICATION GIVEN AND PT TOLERATED IT WELL. SAFETY AND COMFORT PROVIDED. ALL NEEDS ARE MET. WILL ENDORSE ACCORDINGLY TO INCOMING NURSE FOR CONTINUITY OF CARE.
--- NOTE | 2018-12-28 07:35 | NUR ---
RECEIVED PATIENT IN BED AWAKE CONFUSED AND DISORIENTED ATTEMPTING TO GET OUT OF BED DESPITE BILATERAL MITTENS ANS A SITTER AT THE BEDSIDE NEEDING FREQUENT REDIRECTION PATIENT IS AT HIGH RISK FOR FALLS RELATED TO POOR SAFETY AWARENESS WILL CONTINUE TO OBSERVE AND PROVIDE SAFE AND THERAPEUTIC ENVIRONMENT AT ALL TIMES.
[2018-12-28] MEDS: INSULIN REGULAR, HUMAN 300 UNIT/3 ML VIAL SQ PRN ×3 (08:20→21:36)
[2018-12-28] MEDS: ASPIRIN EC 81 MG TABLET.DR PO SCH (08:27)
[2018-12-28] MEDS: METOPROLOL TARTRATE 25 MG TABLET PO SCH ×2 (08:28→21:16)
[2018-12-28] MEDS: RIVASTIGMINE TARTRATE 3 MG CAPSULE PO SCH ×2 (08:28→16:26)
--- NOTE | 2018-12-28 08:28 | NUR ---
PATIENT IN BED GETTING AGITATED CONTINUE TO ATTEMPT TO GET OUT OF BED RESTLESS REFUSED TO TAKE ANY OF HIS PRESCRIBED MEDICATIONS SPIT OUT WHEN PLACED IN HIS MOUTH PATIENT CONTINUES TO REQUIRE CONSTANT REDIRECTIONS WILL CONTINUE TO OBSERVE.ONE ON ONE SITTER ORDERED FOR SAFETY.WILL CONTINUE TO OBSERVE.
[2018-12-28] MEDS: VANCOMYCIN IV 1,250 MG in IV DEXTROSE 5% 500 ML IV SCH (09:08)
[2018-12-28] MEDS: Z GUARD REMEDY PASTE 57 GM TUBE TOP SCH ×2 (09:08→21:31)
--- NOTE | 2018-12-28 09:15 | NUR ---
PHYSICAL THERAPY HERE FOR THERAPEUTIC EXERCISES THEY WERE ONLY ABLE TO STAND PATIENT UP AT THE BEDSIDE AND BACK TO TO BED HE CONTINUES TO BE AGITATED AND HITTING WITH HIS MITTENS PUTTING HIS LEGS OVER THE SIDE RAILS ATTEMPTING TO REMOVE THE MITTENS MADE COMFORTABLE AND WILL CONTINUE TO OBSERVE.
[2018-12-28] MEDS: LORAZEPAM 2 MG/1 ML VIAL IV PRN (09:51)
--- NOTE | 2018-12-28 09:51 | NUR ---
AGITATION AND RESTLESSNESS IS ESCALATING BECOMING AGGRESSIVE KICKING DIFFICULT TO REDIRECT MEDICATED WITH ATIVAN ORDERED AND WILL OBSERVE.
--- NOTE | 2018-12-28 11:10 | NUR ---
DR MACIAS PSYCHIATRIST HERE TO SEE PATIENT WITH NEW ORDERS AND NOTED.
[2018-12-28 12:00] VITALS: BP 136/66
--- NOTE | 2018-12-28 13:28 | NUR ---
CLINICAL PHARMACY NOTE:VANCOMYCIN DOSING S: To Continue vancomycin dosing on 78 y/o male patient for clinical sepsis O: Temp 97.6 BUN 14 Scr 1.1 WBC 6.8 Vanco trough level : 14.8 (on 12/27 at 1730) ht 185 cm wt 85.7 kg Plan Will continue same dose of vancomycin 1250mg ivpb q16h for today. Next dose tomorrow at 0200. Will monitor renal function & adjust the dose if needed. Will continue to monitor.
--- NOTE | 2018-12-28 15:00 | NUR ---
ELHAM CERVANTES HERE SEE PATIENT WITH NEW ORDERS
[2018-12-28 16:00] VITALS: BP 118/58
[2018-12-28] MEDS: OLANZAPINE ZYDIS 5 MG TAB.RAPDIS PO SCH (16:27)
--- NOTE | 2018-12-28 16:47 | NUR ---
ORAL MEDICATIONS GIVEN TO PATIENT IN APPLE SAUCE VERY DIFFICULT BUT MANAGED TO TAKE THEM AWAKE STILL RESTLESS MOVING ALL OVER THE BED THE SITTER IS ASSISTING PATIENT AND PROVIDING SAFETY WILL CONTINUE TO OBSERVE AND PROVIDE COMFORT
[2018-12-28 19:10] VITALS: BP 155/83
--- NOTE | 2018-12-28 19:45 | NUR ---
PATIENT ALERT BUT CONFUSED, PATIENT COMBATIVE, HITS AND KICKS STAFF. PATIENT TRIES TO PULLED OUT IV LINES, REDIRECT PATIENT NOT EFFECTIVE. PATIENT ON 1;1 SITTER FOR SAFETY, ACEVEDO CATH PATENT DRAINING WITH YELLOW URINE IN MODERATE AMOUNT. LEFT UPPER MIDLINE PATENT. V/S STABLE. CONT TO MONITOR.
[2018-12-28] MEDS: TEMAZEPAM 7.5 MG CAPSULE PO PRN (21:14)
[2018-12-28] MEDS: ATORVASTATIN 40 MG TABLET PO SCH (21:14)
[2018-12-28] MEDS: DOCUSATE SODIUM 100 MG CAPSULE PO SCH (21:14)
[2018-12-29] MEDS: BLOOD SUGAR DIAGNOSTIC 1 EACH STRIP VI SCH ×4 (05:02→20:50)
[2018-12-29 05:26] VITALS: BP 112/55
[2018-12-29] MEDS: PANTOPRAZOLE SODIUM 40 MG TABLET.DR PO SCH (05:32)
[2018-12-29 06:41] LABS: BASOPHILS % (AUTO) 0.3 % (0.0-2.0); EOSINOPHILS # (AUTO) 0.1 K/uL (0.0-0.7); EOSINOPHILS % (AUTO) 1.3 % (0.0-7.0); HEMATOCRIT 37.5 % (36.7-47.1); HEMOGLOBIN 13.1 g/dL (12.5-16.3); LYMPHOCYTES % (AUTO) 13.9 % (20.5-51.5); MEAN CORPUSCULAR HEMOGLOBIN 30.4 uug (23.8-33.4); MEAN CORPUSCULAR HGB CONC 35 g/dL (32.5-36.3); MEAN CORPUSCULAR VOLUME 87.1 fL (73.0-96.2); MONOCYTES # (AUTO) 0.5 K/uL (2.0-10.0); MONOCYTES % (AUTO) 7.4 % (0.0-11.0); NEUTROPHILS # (AUTO) 5.5 K/uL (1.8-8.9); NEUTROPHILS % (AUTO) 77.1 % (38.5-71.5); PLATELET COUNT (AUTO) 140 K/uL (152-348); RED BLOOD CELL COUNT(AUTO) 4.31 MIL/uL (4.06-5.63); WHITE BLOOD COUNT (AUTO) 7.1 K/uL (3.6-10.2)
[2018-12-29 07:00] VITALS: BP 124/55
[2018-12-29 07:02] LABS: CARBON DIOXIDE 31 mmol/L (21-32); CHLORIDE 108 mmol/L (98-107); CREATININE 1.1 mg/dL (0.6-1.3); GLUCOSE 164 mg/dL (74-106); UREA NITROGEN, BLOOD 16 mg/dL (7-18)
--- NOTE | 2018-12-29 07:15 | NUR ---
RECEIVED PATIENT IN BED LAYING COMFORTABLY WITH 1:1 SITTER FOR SAFETY. PATIENT ALERT BUT CONFUSED WITH SOFT RESTRAINT CONTINUE TO MONITOR EVERY 2 HOURS. MIDLINE INTACT. NO S/S OF SOB NOTED, BED IN LOW POSITION WITH 2 SIDE RAILS UP. WILL CONTINUE TO MONITOR AND CONTINUE TREATMENT PLAN.
[2018-12-29] MEDS: INSULIN REGULAR, HUMAN 300 UNIT/3 ML VIAL SQ PRN ×3 (08:30→17:02)
[2018-12-29] MEDS: METOPROLOL TARTRATE 25 MG TABLET PO SCH ×2 (08:56→20:38)
[2018-12-29] MEDS: RIVASTIGMINE TARTRATE 3 MG CAPSULE PO SCH ×2 (08:57→17:08)
[2018-12-29] MEDS: ASPIRIN EC 81 MG TABLET.DR PO SCH (08:57)
[2018-12-29] MEDS: OLANZAPINE ZYDIS 5 MG TAB.RAPDIS PO SCH ×2 (09:12→17:07)
[2018-12-29] MEDS: Z GUARD REMEDY PASTE 57 GM TUBE TOP SCH ×2 (09:13→20:40)
[2018-12-29 12:30] VITALS: BP 134/64
[2018-12-29 15:04] VITALS: BP 154/68
--- NOTE | 2018-12-29 18:39 | NUR ---
PATIENT IN BED WITH HOB ELEVATED WITH 1:1 SITTER FOR SAFETY. PATIENT ALERT BUT CONFUSED WITH SOFT RESTRAINT CONTINUE TO MONITOR EVERY 2 HOURS. MIDLINE INTACT. NO S/S OF SOB NOTED, BED IN LOW POSITION WITH 2 SIDE RAILS UP. WILL CONTINUE TO MONITOR AND CONTINUE TREATMENT PLAN.
[2018-12-29 20:00] VITALS: BP 150/56
--- NOTE | 2018-12-29 20:00 | NUR ---
RECEIVED PATIENT AWAKE AND LAYING IN BED WITH 1:1 SITTER AT BEDSIDE FOR SAFETY. NO COMPLAINTS OF PAIN OR DISCOMFORT AT THIS TIME. ALL SAFETY AND FALL PRECAUTION MEASURES IN PLACE. VS ARE WNL FOR PATIENT. CALL LIGHT WITHIN REACH AT ALL TIMES. WILL CONTINUE TO MONITOR.
[2018-12-29] MEDS: ATORVASTATIN 40 MG TABLET PO SCH (20:37)
[2018-12-29] MEDS: DOCUSATE SODIUM 100 MG CAPSULE PO SCH (20:40)
[2018-12-30] MEDS: BLOOD SUGAR DIAGNOSTIC 1 EACH STRIP VI SCH ×2 (06:12→11:30)
--- NOTE | 2018-12-30 06:53 | NUR ---
PATIENT IS ASLEEP IN BED RESTING COMFORTABLY. NO SIGNS OR SYMPTOMS OF ACUTE DISTRESS OR DISCOMFORT NOTED OR OBSERVED. 1:1 SITTER AT BEDSIDE. ALL SAFETY AND FALL PRECAUTION MEASURES ARE IN PLACE. CALL LIGHT AND PERSONAL ITEMS ARE WITHIN REACH AT ALL TIMES.
--- NOTE | 2018-12-30 07:10 | NUR ---
PATIENT IN BED ASLEEP, AND HARD TO AWAKEN. BIOMASS TECHNICIAN ELHAM IS AWARE. ACEVEDO CATH. IN PLACE WITH CLEAR /YELLOW URIN. FALL/SAFETY PRECAUTIONS IN PLACE. BED IN LOW POSITION AND LOCKED. CALL LIGHT IN REACH. WILL CONTINUE TO MONITOR.
[2018-12-30] MEDS: PANTOPRAZOLE SODIUM 40 MG TABLET.DR PO SCH (09:25)
[2018-12-30] MEDS: OLANZAPINE ZYDIS 5 MG TAB.RAPDIS PO SCH (09:26)
[2018-12-30] MEDS: ASPIRIN EC 81 MG TABLET.DR PO SCH (09:26)
[2018-12-30] MEDS: RIVASTIGMINE TARTRATE 3 MG CAPSULE PO SCH (09:27)
[2018-12-30] MEDS: Z GUARD REMEDY PASTE 57 GM TUBE TOP SCH (09:28)
[2018-12-30] MEDS: METOPROLOL TARTRATE 25 MG TABLET PO SCH (09:28)
[2018-12-30] MEDS ORDERED: ASPI-618 PO (11:15)
[2018-12-30] MEDS ORDERED: OLAN5TAB6 PO (11:15)
[2018-12-30] MEDS ORDERED: ATOR40TA PO (11:15)
[2018-12-30] MEDS ORDERED: METO25TA6 PO (11:15)
[2018-12-30] MEDS ORDERED: METF-440 PO (11:15)
[2018-12-30 12:00] VITALS: BP 122/61
[2018-12-30] MEDS: INSULIN REGULAR, HUMAN 300 UNIT/3 ML VIAL SQ PRN (13:25)
--- NOTE | 2018-12-30 14:00 | NUR ---
PATIENT DISCHARGED TO [facility]. PATIENT IN STABLE CONDITION. BP 116/47, TEMP 97.7. HR 62. DISCHARGE INSTRUCTIONS SENT WITH PATIENT. BELONGINGS LIST COMPLETED AND BELONGINGS SENT WITH PATIENT. IV REMOVED. ACEVEDO CATH REMOVED. ARM BAND TAKEN OFF UPON DISCHARGE.
== END 2018-12-30 14:10 | DRG 682 ==
LOC: ER 17:01 → TELE3 19:12 → CCU 12-24 13:23 → TELE3 12-27 04:20 → MEDSURG3 12-28 17:47
PROVIDERS: ADMIT Internal Medicine; ATTEND Internal Medicine
DX: N17.0 Acute kidney failure with tubular necrosis (principal); I21.4 Non-ST elevation (NSTEMI) myocardial infarction; G93.41 Metabolic encephalopathy; I50.43 Acute on chronic combined systolic (congestive) and diastolic (congestive) heart failure; D68.59 Other primary thrombophilia; E44.0 Moderate protein-calorie malnutrition; E86.0 Dehydration; E11.65 Type 2 diabetes mellitus with hyperglycemia; R29.6 Repeated falls; Z85.828 Personal history of other malignant neoplasm of skin; G30.9 Alzheimer's disease, unspecified; F02.80 Dementia in other diseases classified elsewhere, unspecified severity, without behavioral disturbance, psychotic disturbance, mood disturbance, and anxiety; I11.0 Hypertensive heart disease with heart failure; F29 Unspecified psychosis not due to a substance or known physiological condition; D69.6 Thrombocytopenia, unspecified; Z68.24 Body mass index [BMI] 24.0-24.9, adult; J32.9 Chronic sinusitis, unspecified; M19.90 Unspecified osteoarthritis, unspecified site; M81.0 Age-related osteoporosis without current pathological fracture; Z86.79 Personal history of other diseases of the circulatory system; I70.0 Atherosclerosis of aorta
CPT/HCPCS: 36415; 36569; 70030-TC; 70450; 71045; 83735; 84100; 84443; 85025; 85730; 87040; 87086; 93005; 93307; 93880; 97110; 97112; 97116; 97530; A4663; G0378; J0696; J1644; J1815; J2060; J2405; J3370; J3486; J3490; J7040; J7050; J7060

== ENCOUNTER 2019-07-25 05:55 | Inpatient (IN) | payer MEDICARE, BC ==
[~2019-07-25] VITALS: Ht 175.3 cm; Wt 68.0 kg
[2019-07-25] VITALS (13 sets, daily range): BP systolic 94–130; BP diastolic 42–69
[~2019-07-25 05:55] MED LIST changes: +ASPI-618 PO; +ATOR40TA PO; +METF-440 PO; +METO25TA6 PO; +OLAN5TAB6 PO
[2019-07-25] MEDS ORDERED: SUCCINYLCHOLINE CHLORIDE 200 MG/10 ML VIAL IV ONE ×2 (06:00→06:45)
[2019-07-25] MEDS ORDERED: ETOMIDATE 20 MG/10 ML VIAL IV ONE ×2 (06:00→06:45)
--- NOTE | 2019-07-25 06:00 | NUR ---
PT BIB RESCUE 100 FR [facility] C/O SOB AND DESAT TP 85%RA 95% WITH 15LPM O2 NONREBREATHER MASK VIA GURNEY +INDWELLING CATHETER (+URINE AT 50ML) +PICC LINE PATENT 22G +G20 L WRIST PT IS ABLE TO REPLY IN ONE-TWO WORDS, KEPT TRYING TO REMOVE MASK +RALES ON L LOWER LUNG RR AT 22 MD AT BEDSIDE FOR HX AND PHYSICAL HR AT 111 BP AT 90/43MMHG CODE SEPSIS INITIATED
[2019-07-25] MEDS ORDERED: GENTAMICIN SULFATE INJ 80 MG in IV DEXTROSE 5% 100 ML IV ONE (06:15)
[2019-07-25] MEDS ORDERED: CEFTRIAXONE 1 G in IV DEXTROSE 5% 50 ML IV ONE (06:15)
[2019-07-25] MEDS ORDERED: IV NORMAL SALINE 1000 ML BAG IV ONE (06:15)
[2019-07-25] MEDS ORDERED: VANCOMYCIN IV 1,000 MG in IV DEXTROSE 5% 250 ML IV ONE (06:15)
[2019-07-25] MEDS ORDERED: ETOMIDATE 20 MG/10 ML VIAL ONE (06:22)
--- NOTE | 2019-07-25 06:25 | NUR ---
INTUBATION COMMENCED BY KAILEY
[2019-07-25 06:27] LABS: BASOPHILS % (AUTO) 0.2 % (0.0-2.0); EOSINOPHILS % (AUTO) 0.1 % (0.0-7.0); HEMATOCRIT 31.2 % (36.7-47.1); LYMPHOCYTES # (AUTO) 1.3 K/uL (20.0-40.0); MEAN CORPUSCULAR HEMOGLOBIN 26.8 uug (23.8-33.4); MEAN CORPUSCULAR HGB CONC 32 g/dL (32.5-36.3); MEAN CORPUSCULAR VOLUME 83.7 fL (73.0-96.2); MONOCYTES # (AUTO) 0.4 K/uL (2.0-10.0); MONOCYTES % (AUTO) 4.1 % (0.0-11.0); NEUTROPHILS # (AUTO) 6.9 K/uL (1.8-8.9); NEUTROPHILS % (AUTO) 80.6 % (38.5-71.5); PLATELET COUNT (AUTO) 266 K/uL (152-348); RED BLOOD CELL COUNT(AUTO) 3.73 MIL/uL (4.06-5.63); WHITE BLOOD COUNT (AUTO) 8.6 K/uL (3.6-10.2)
--- NOTE | 2019-07-25 06:27 | NUR ---
Pt intubated due to respiratory distress by Dr. Laguna with 7.5 ETT~22cm at lip line and placed on Edwards vent with the following settings of AC-20, Vt-600, PEEP+5, FIO2-100%. No bleeding noted. Sputum collected. Resus. bag at bedside. Vent and alarms checked and reset.
[2019-07-25] MEDS ORDERED: POLY119P8 PO (06:33)
[2019-07-25] MEDS ORDERED: MULT1CAP34 PO (06:33)
[2019-07-25] MEDS ORDERED: MAGN400O6 PO (06:33)
[2019-07-25] MEDS ORDERED: BISA10SU95 RC (06:33)
[2019-07-25] MEDS ORDERED: RIVA6CAP3 PO (06:33)
[2019-07-25] MEDS ORDERED: DEXT1CAP3 PO (06:33)
[2019-07-25] MEDS ORDERED: CELE100C98 PO (06:33)
[2019-07-25] MEDS ORDERED: MAG-55 PO (06:33)
[2019-07-25] MEDS ORDERED: BALS60OI3 TP (06:33)
[2019-07-25] MEDS ORDERED: INSU3INS3 SQ (06:33)
[2019-07-25] MEDS ORDERED: CALCIUM CARBONATE (06:33)
[2019-07-25] MEDS ORDERED: PANT40TA2 PO (06:33)
[2019-07-25] MEDS ORDERED: DOCU-141 PO (06:33)
[2019-07-25] MEDS ORDERED: ASCO500C18 PO (06:33)
[2019-07-25] MEDS ORDERED: NA P133E RC (06:33)
[2019-07-25] MEDS ORDERED: CHOLECALCIFEROL (06:33)
[2019-07-25] MEDS ORDERED: ZINC1CAP2 PO (06:34)
[2019-07-25] MEDS ORDERED: AMIN30LI27 PO (06:34)
[2019-07-25] MEDS ORDERED: ACET-2605 PO (06:34)
[2019-07-25] MEDS ORDERED: QUET25TA PO (06:34)
[2019-07-25] MEDS ORDERED: SENN-168 PO (06:34)
[2019-07-25] MEDS ORDERED: [UNRECOGNIZED DRUG - CODE] IV (06:34)
[2019-07-25] MEDS ORDERED: CEFTRIAXONE /D5W 50ML IVPB **ER PYXIS IV ONE (06:35)
[2019-07-25] MEDS ORDERED: VANCOMYCIN IV 200 ML ONE (06:35)
[2019-07-25] MEDS ORDERED: GENTAMICIN SULFATE 80 MG/2 ML VIAL ONE (06:35)
[2019-07-25 06:37] LABS: CARBON DIOXIDE 29 mmol/L (21-32); CHLORIDE 104 mmol/L (98-107); CREATININE 1.7 mg/dL (0.6-1.3); GLUCOSE 199 mg/dL (74-106); UREA NITROGEN, BLOOD 25 mg/dL (7-18)
[2019-07-25 06:49] LABS: ALANINE AMINOTRANSFERASE 12 U/L (16-63); ALKALINE PHOSPHATASE 120 U/L (50-136); ASPARTATE AMINOTRANSFERASE 20 U/L (15-37); BILIRUBIN,DIRECT 0.2 mg/dL (0.0-0.2); BILIRUBIN,TOTAL 0.4 mg/dL (0.2-1.0); TOTAL PROTEIN, SERUM 7.2 g/dL (6.4-8.2)
--- NOTE | 2019-07-25 06:58 | NUR ---
CALL FOR BED DONE PT IS FULL CODE
[2019-07-25] MEDS ORDERED: IOHEXOL 350 100 ML INFUS..BTL ONE (07:04)
[2019-07-25] MEDS ORDERED: SWABABLE VALVE TRANSFER SET EA MC ONE (07:04)
[2019-07-25] MEDS ORDERED: IV NORMAL SALINE 250 ML IV ONE (07:04)
[2019-07-25] MEDS ORDERED: PROPOFOL 100 ML IV ONE (07:05)
[2019-07-25 07:06] LABS: *BILIRUBIN,URIN NEGATIVE (NEGATIVE); *BLOOD, URINE 3+ (NEGATIVE); *CLARITY,URINE CLOUDY (CLEAR); *COLOR,URINE YELLOW (YELLOW); *KETONES,URINE TRACE (NEGATIVE); *UROBILINOGEN,URINE 0.2 E.U./dl (NORMAL); LEUKOCYTE ESTERASE ,URINE 1+ (NEGATIVE); NITRITE, URINE NEGATIVE (NEGATIVE); PH,URINE 5.5 (5.0-8.0); UGLUCOSE NEGATIVE (NEGATIVE)
[2019-07-25] MEDS ORDERED: PROPOFOL 100 ML ONE (07:07)
[2019-07-25 07:10] LABS: ABG BASE EXCESS -1.5 mmol/L; ABG HCO3 21.9 mmol/L; ABG PCO2 31.8 mmHg (35.0-45.0); ABG PH 7.456 (7.350-7.450); ABG PO2 169.8 mmHg (75.0-100.0); ABG SITE RIGHT RADIAL; ABG TOTAL HEMOGLOBIN 9.1 G/dL (13.5-18.0); COHb 0.9 % (0.5-1.5); MetHb 0.2 % (0.0-1.5); O2Hb 98.6 % (94.0-97.0); VENT MODE VENT - A/C; VT, ABG 600 mL
[2019-07-25 07:15] LABS: RBC,URINE TNTC /HPF (0-3)
--- NOTE | 2019-07-25 07:16 | NUR ---
ZBIGNIEW WHITFIELD AT BEDSIDE FOR CT W/ A CONSENT CO-SIGNED
[2019-07-25 07:28] LABS: WBC,URINE 20-50 /HPF (0-3)
[2019-07-25 07:29] LABS: SQUAMOUS EPITHELIAL CELL,UR FEW /HPF (NONE SEEN); URIC ACID CRYSTALS,URINE MODERATE /HPF (NONE SEEN); URINE AMORPHOUS URATE MODERATE /HPF
--- NOTE | 2019-07-25 07:29 | NUR ---
HAND OFF AND SBAR GIVEN TO INCOMING DAY SHIFT RN
--- NOTE | 2019-07-25 07:30 | NUR ---
Tio james in [facility] - 07/25/19 at 0844 by SHEFALI accompanied pt to ct scan with rt, pt on monitor.
--- NOTE | 2019-07-25 07:30 | NUR ---
ACCOMPANIED THE PT TO CT WITH TT, PT ON MONITOR.
[2019-07-25 07:42] LABS: BACTERIA,URINE NONE SEEN /HPF (NONE SEEN)
--- NOTE | 2019-07-25 07:50 | NUR ---
Tio james in [facility] - 07/25/19 at 0844 by SHEFALI pt back from ct scan. adjusted the diprivan drip up to 40mcg/kg/min to achieve pt comfort and maintain bp. pt at bedside.
--- NOTE | 2019-07-25 07:50 | NUR ---
PT BACK FFROM CT. PT TOLERATED WELL. INCREASED THE PROPOFOL RATE TI 40MCG/KG/MIN TO ACHIEVE PT COMFORT AND MAINTAINING BP. PT AT BEDSIDE,
--- NOTE | 2019-07-25 09:01 | NUR ---
[facility]
--- NOTE | 2019-07-25 09:45 | NUR ---
PT TRANSFERED TO FLOOR ACCOPANIED BY RN AND RT IN STABLE CONDITION.
[2019-07-25] MEDS ORDERED: PIPERACILLIN SODIUM/TAZOBACTAM 3.375 G in IV DEXTROSE 5% 50 ML IV SCH (10:15)
[2019-07-25] MEDS ORDERED: ZOLPIDEM 5 MG TABLET PO PRN (10:15)
[2019-07-25] MEDS ORDERED: ONDANSETRON 4 MG/2 ML VIAL IV PRN (10:15)
[2019-07-25] MEDS ORDERED: ACETAMINOPHEN 325 MG TABLET PO PRN (10:15)
[2019-07-25] MEDS ORDERED: HYDROCODONE/APAP 5-325MG TABLET PO PRN (10:15)
[2019-07-25] MEDS ORDERED: Z GUARD REMEDY PASTE 57 GM TUBE TOP PRN (10:15)
[2019-07-25] MEDS ORDERED: MAGNESIUM HYDROXIDE 30 ML LIQUID UDC PO PRN (10:15)
[2019-07-25] MEDS ORDERED: FAMOTIDINE. 20 MG/2 ML VIAL IV SCH (10:15)
--- NOTE | 2019-07-25 10:44 | NUR ---
Clinical Pharmacy Note: Vancomycin Dosing per Pharmacy Subjective: Vancomycin IV to start on this 79 yo male patient for septic shock, pna (from long-term) Objective: BUN 25/Scr 1.7 WBC 8.6 Temperature 98.4 ht 180 cm wt 67 kg Assessment/Plan: Patient received vanco 1 gm IVPB x1 today at 0600 in ED. Due to elevated srcr, will dose by random level. Will check random leve tomorrow with am afia. Pharmacy shall review the level in am & re-dose as needed. Will follow daily.
[2019-07-25] MEDS: FAMOTIDINE. 20 MG/2 ML VIAL IV SCH (11:38)
[2019-07-25] MEDS: IV D5 1/2 NS 1000 ML 1,000 ML IV PRN (11:38)
[2019-07-25] MEDS: PIPERACILLIN SODIUM/TAZOBACTAM 3.375 G in IV DEXTROSE 5% 50 ML IV SCH ×3 (11:39→23:42)
[2019-07-25] MEDS: HEPARIN SODIUM,PORCINE 5,000 UNITS/ML VIAL SQ SCH ×2 (11:40→21:36)
--- NOTE | 2019-07-25 16:00 | NUR ---
Pm care rendered and photos taken on the wounds.
[2019-07-25] MEDS: PROPOFOL 100 ML IV PRN (17:00)
--- NOTE | 2019-07-25 18:00 | NUR ---
No apparent distress noted all day. Latest temp is 101.[address] Cardenas aware. Tylenol suppository ordered.
[2019-07-25] MEDS ORDERED: ACETAMINOPHEN 650 MG SUPP.RECT RC PRN (19:00)
[2019-07-25] MEDS ORDERED: ACETAMINOPHEN 325 MG TABLET PO ONE (19:00)
--- NOTE | 2019-07-25 19:50 | NUR ---
Received pt orally intubated, AC 20, TV 600, PEEP 6, FIO2 80%. Pt O2 sats up to 100%, no distress noted. Pt suctioned noted to have thin white/hilton secretions. NSR on monitor. Propofol running at 30 mcg/min, IVF D5 1/2 NS running at 75 cc/hr. Continue antibiotic therapy. F/C in place. NPO diet observed. Tylenol suppository given for latest temp 99.5 axillary as ordered. Assessment completed. Wound check done. Pt turned and repositioned. Safety and aspiration precautions maintained. Will continue plan of care. Addendum: 07/26/19 at 0221 by SADAF PAZ RN @2014 Sedation vacation done: After 10 minutes, pt started gagging and coughing. Pt unable to follow commands during time, continues to be restless. Propofol resumed. Continue plan of care.
[2019-07-25] MEDS ORDERED: IV NORMAL SALINE 250 ML IV PRN (23:15)
[2019-07-26] VITALS (23 sets, daily range): BP systolic 91–160; BP diastolic 46–97
[2019-07-26] MEDS: IV D5 1/2 NS 1000 ML 1,000 ML IV PRN ×2 (00:46→18:07)
[2019-07-26] MEDS: PROPOFOL 100 ML IV PRN ×4 (01:23→21:58)
--- NOTE | 2019-07-26 04:30 | NUR ---
AM care provided, oral care and wound care done. Pt right hip noted to have moderate serosanguineous drainage - color yellow and red. Pt tolerating current vent settings. O2 sats up to 100%. No acute distress noted. Pt repositioned and turned. Heels floating. Continue to monitor.
[2019-07-26 05:11] LABS: BASOPHILS % (AUTO) 0.2 % (0.0-2.0); EOSINOPHILS % (AUTO) 0.6 % (0.0-7.0); LYMPHOCYTES # (AUTO) 1.2 K/uL (20.0-40.0)
[2019-07-26 05:13] LABS: HEMATOCRIT 22.7 % (36.7-47.1); LYMPHOCYTES % (AUTO) 19.1 % (20.5-51.5); MEAN CORPUSCULAR HEMOGLOBIN 26.6 uug (23.8-33.4); MEAN CORPUSCULAR HGB CONC 33 g/dL (32.5-36.3); MEAN CORPUSCULAR VOLUME 81.1 fL (73.0-96.2); MONOCYTES # (AUTO) 0.3 K/uL (2.0-10.0); MONOCYTES % (AUTO) 4.2 % (0.0-11.0); NEUTROPHILS # (AUTO) 4.7 K/uL (1.8-8.9); NEUTROPHILS % (AUTO) 75.9 % (38.5-71.5); PLATELET COUNT (AUTO) 168 K/uL (152-348); RED BLOOD CELL COUNT(AUTO) 2.79 MIL/uL (4.06-5.63)
[2019-07-26 05:19] LABS: CARBON DIOXIDE 24 mmol/L (21-32); CHLORIDE 105 mmol/L (98-107); CREATININE 1.8 mg/dL (0.6-1.3); GLUCOSE 209 mg/dL (74-106); PHOSPHOROUS 1.6 mg/dL (2.5-4.9); POTASSIUM 2.9 mmol/L (3.5-5.1); UREA NITROGEN, BLOOD 26 mg/dL (7-18); VANCOMYCIN,RANDOM 29.3 ug/mL (18.0-26.0)
[2019-07-26 05:27] LABS: THYROID STIMULATING HORMONE 2.082 mIU/mL (0.358-3.740)
[2019-07-26 05:35] LABS: HEMOGLOBIN 7.4 g/dL (12.5-16.3)
[2019-07-26 05:38] LABS: WHITE BLOOD COUNT (AUTO) 6.2 K/uL (3.6-10.2)
[2019-07-26 05:39] LABS: MAGNESIUM 1.2 mg/dL (1.8-2.4)
[2019-07-26 05:45] LABS: CHOLESTEROL 84 mg/dL (<200); HDL CHOLESTEROL 15 mg/dL (40-60); TRIGLYCERIDES 158 MG/DL (30-150)
[2019-07-26] MEDS: PIPERACILLIN SODIUM/TAZOBACTAM 3.375 G in IV DEXTROSE 5% 50 ML IV SCH ×3 (05:57→17:49)
--- NOTE | 2019-07-26 06:00 | NUR ---
Paged multi operation machine operator ALEE WATSON MD, regarding critical lab hemoglobin and potassium levels. Orders received. See order history. Continue plan of care.
[2019-07-26 06:51] LABS: LYMPHOCYTES # (AUTO) 1.1 K/uL (20.0-40.0); NEUTROPHILS # (AUTO) 5.3 K/uL (1.8-8.9); WHITE BLOOD COUNT (AUTO) 6.7 K/uL (3.6-10.2)
[2019-07-26 06:53] LABS: BASOPHILS % (AUTO) 0.1 % (0.0-2.0); EOSINOPHILS % (AUTO) 0.7 % (0.0-7.0); HEMATOCRIT 22.8 % (36.7-47.1); LYMPHOCYTES % (AUTO) 15.9 % (20.5-51.5); MEAN CORPUSCULAR HEMOGLOBIN 26.5 uug (23.8-33.4); MEAN CORPUSCULAR HGB CONC 32 g/dL (32.5-36.3); MEAN CORPUSCULAR VOLUME 81.7 fL (73.0-96.2); MONOCYTES # (AUTO) 0.2 K/uL (2.0-10.0); MONOCYTES % (AUTO) 3.6 % (0.0-11.0); NEUTROPHILS % (AUTO) 79.7 % (38.5-71.5); PLATELET COUNT (AUTO) 172 K/uL (152-348); RED BLOOD CELL COUNT(AUTO) 2.79 MIL/uL (4.06-5.63)
[2019-07-26 06:55] LABS: HEMOGLOBIN 7.4 g/dL (12.5-16.3)
[2019-07-26 07:03] LABS: ABG BASE EXCESS 1.9 mmol/L; ABG HCO3 22.6 mmol/L; ABG PH 7.629 (7.350-7.450); ABG PO2 167.8 mmHg (75.0-100.0); ABG SITE LEFT BRACHIAL; ABG TOTAL HEMOGLOBIN 7.8 G/dL (13.5-18.0); COHb 1.2 % (0.5-1.5); MetHb 0.2 % (0.0-1.5); O2Hb 98.3 % (94.0-97.0); VENT MODE VENT - A/C; VT, ABG 600 mL
[2019-07-26] MEDS: POTASSIUM CHLORIDE 50 ML IV SCH ×4 (07:28→09:30)
--- NOTE | 2019-07-26 09:10 | NUR ---
Pt received on continuous mechanical ventilation via 7.5 ETT secured at approximately 23cm lip line. Pt on Edwards vent with ordered settings of A/C-120, VT-600, PEEP+5, FIO2-60%. Pt tolerating vent settings well. Sxn'd small amounts of thick secretions. No signs or symptoms of respiratory distress noted. ETT secured with AnchorFast device, good skin integrity noted to area of application. ETT moved periodically per hospital policy. HME changed. Oral care done. PPE used. Bag/valve/mask at bedside. Vent alarm parameters checked, on and audible. Vent plugged into red emergency outlet. Will continue to monitor.
[2019-07-26] MEDS: FAMOTIDINE. 20 MG/2 ML VIAL IV SCH (09:15)
[2019-07-26] MEDS: HEPARIN SODIUM,PORCINE 5,000 UNITS/ML VIAL SQ SCH ×2 (09:21→21:17)
--- NOTE | 2019-07-26 09:50 | NUR ---
Dr. Adams in the unit. informed that patient has moderate drainage on right surgical wound with serous sanguinos fluid and patient hemoglobin 7.4. Doctor was ok to continue heparin sq.
--- NOTE | 2019-07-26 09:59 | NUR ---
vent setting changed to rate of 12 and fio2 decreased to 50% per doctor ely orders.
--- NOTE | 2019-07-26 10:00 | NUR ---
Vent changes made per MD orders. Rate decreased to A/C-12, FIO2 decreased to 50%
[2019-07-26] MEDS: POTASSIUM PHOSPHATE MM 5 MMOL in IV DEXTROSE 5% 100 ML IV SCH ×4 (10:27→16:20)
[2019-07-26] MEDS: MAGNESIUM SULFATE/D5W 100 ML IV SCH ×2 (10:27→11:23)
[2019-07-26] MEDS ORDERED: DEXTROSE 50% 50 ML DISP.SYRIN IV PRN (10:45)
--- NOTE | 2019-07-26 11:00 | NUR ---
Fio2 decreased to 40%, AALIYAH Silveira notified.
[2019-07-26 12:14] LABS: IRON, SERUM 12 ug/dL (50-175)
--- NOTE | 2019-07-26 12:40 | NUR ---
WOUND CARE CONSULT: PT PRESENTS WITH RT HIP CLOSED INCISION WITH MARIELY, UNSTAGEABLE ULCER TO SACRUM, BILATERAL FOOT INTACT DEEP TISSUE INJURIES AND SCAR TO LEFT HEEL, PRESENT ON ADMISSION. RECOMMEND SURGICAL CONSULT. DR EUBANKS NOTIFIED OF CONSULT REQUEST. RECOMMENDATIONS MADE FOR SKIN PROTECTION AND WOUND CARE FOR INTACT DEEP TISSUE INJURIES/SCAR ON FEET. DISCUSSED WITH NURSING STAFF. PT ON FIRST STEP [facility]. WILL SEE PRN. HARDWICK IN AGREEMENT WITH PLAN OF CARE. CURRENT ANDER SCORE IS 10. Addendum: 07/26/19 at 1243 by SOL SORIANO RN Amended: Links added.
[2019-07-26] MEDS: BLOOD SUGAR DIAGNOSTIC 1 EACH STRIP VI SCH ×2 (12:53→17:49)
--- NOTE | 2019-07-26 13:12 | NUR ---
Clinical Pharmacy Note: Vancomycin Dosing per Pharmacy Subjective: Vancomycin IV to continue on this 79 yo male patient for septic shock, pna (from skilled nursing) Objective: BUN 26/Scr 1.8 WBC 6.7 Temperature 98.9 ht 180 cm wt 67 kg Vancomycin random 07/26 at 0600:29.3 Assessment/Plan: Patient received vanco 1 gm IVPB x1 on 07/25 at 0600 in ED. Due to elevated srcr, will dose by random level. Since random is over 20, no dose will be given today. Random is on order for tomorrow am for further dosing.
[2019-07-26] MEDS: INSULIN REGULAR, HUMAN 300 UNIT/3 ML VIAL SQ PRN ×2 (13:15→17:57)
--- NOTE | 2019-07-26 14:20 | NUR ---
Jackeline AVIATION ELECTRICIAN in to see patient as unix consultant for surgery. wound recommendations made and ordered.
[2019-07-26] MEDS: NYSTATIN POWDER 15 GM BOTTLE TOP SCH ×2 (18:57→21:17)
--- NOTE | 2019-07-26 21:51 | NUR ---
* Maintains vital signs WNL * Maintains optimal lab values PATIENT IS ON ANTIBIOTICS Addendum: 07/26/19 at 2152 by MADISON LEE RN Amended: Jeny added. Addendum: 07/26/19 at 2154 by MADISON LEE RN Amended: Jeny added.
--- NOTE | 2019-07-26 21:52 | NUR ---
Performs deep breathing and coughing * Exhibits no adventitious breath sounds * Maintains adequate ventilation SUCTION ACCORDINGLY Addendum: 07/26/19 at 2154 by MADISON LEE RN Amended: Links added.
--- NOTE | 2019-07-26 22:00 | NUR ---
* Maintains vital signs WNL Addendum: 07/26/19 at 2200 by MADISON LEE RN Amended: Links added.
[2019-07-27] VITALS (29 sets, daily range): BP systolic 70–150; BP diastolic 41–78
[2019-07-27] MEDS: PIPERACILLIN SODIUM/TAZOBACTAM 3.375 G in IV DEXTROSE 5% 50 ML IV SCH ×5 (00:04→23:36)
[2019-07-27] MEDS: BLOOD SUGAR DIAGNOSTIC 1 EACH STRIP VI SCH ×5 (00:13→23:49)
--- NOTE | 2019-07-27 02:10 | NUR ---
SEDATION VACATION WAS STARTED , PATIENT IS MORE SEDATED , HARD TO AROUSE , CLOSE MONITORING OF VS AND BREATHING IS BEING DONE
--- NOTE | 2019-07-27 03:18 | NUR ---
RESPOND TO PAIN AND RUBBING , NO SIGNS OF DISTRESS
--- NOTE | 2019-07-27 03:39 | NUR ---
AROUSABLE TO LIGHT PAIN , NO DISTRESS
--- NOTE | 2019-07-27 04:46 | NUR ---
AROUSABLE TO LIGHT TOUCH , NO OPENING OF EYES NOTED WITH STIMULATION , GAG AND COUGH REFLEX PRESENT
[2019-07-27 04:58] LABS: BASOPHILS % (AUTO) 0.2 % (0.0-2.0); EOSINOPHILS # (AUTO) 0.1 K/uL (0.0-0.7); EOSINOPHILS % (AUTO) 1.6 % (0.0-7.0); HEMATOCRIT 25.8 % (36.7-47.1); HEMOGLOBIN 8.4 g/dL (12.5-16.3); LYMPHOCYTES # (AUTO) 1.6 K/uL (20.0-40.0); LYMPHOCYTES % (AUTO) 22.4 % (20.5-51.5); MEAN CORPUSCULAR HEMOGLOBIN 26.4 uug (23.8-33.4); MEAN CORPUSCULAR HGB CONC 32 g/dL (32.5-36.3); MEAN CORPUSCULAR VOLUME 81.5 fL (73.0-96.2); MONOCYTES # (AUTO) 0.3 K/uL (2.0-10.0); MONOCYTES % (AUTO) 4.8 % (0.0-11.0); NEUTROPHILS # (AUTO) 5.2 K/uL (1.8-8.9); PLATELET COUNT (AUTO) 199 K/uL (152-348); RED BLOOD CELL COUNT(AUTO) 3.17 MIL/uL (4.06-5.63); WHITE BLOOD COUNT (AUTO) 7.3 K/uL (3.6-10.2)
[2019-07-27 05:13] LABS: ALANINE AMINOTRANSFERASE 15 U/L (16-63); ALKALINE PHOSPHATASE 145 U/L (50-136); ASPARTATE AMINOTRANSFERASE 25 U/L (15-37); BILIRUBIN,TOTAL 0.4 mg/dL (0.2-1.0); CARBON DIOXIDE 23 mmol/L (21-32); CHLORIDE 105 mmol/L (98-107); GLUCOSE 174 mg/dL (74-106); MAGNESIUM 1.9 mg/dL (1.8-2.4); PHOSPHOROUS 3.7 mg/dL (2.5-4.9); POTASSIUM 5.3 mmol/L (3.5-5.1); TOTAL PROTEIN, SERUM 6.7 g/dL (6.4-8.2); UREA NITROGEN, BLOOD 25 mg/dL (7-18); VANCOMYCIN,RANDOM 23.6 ug/mL (18.0-26.0)
--- NOTE | 2019-07-27 05:18 | NUR ---
PROPOFOL RESTARTED , PATIENT OPENS EYES SPONTANEOUSLY AND MOVE HANDS
[2019-07-27] MEDS: PROPOFOL 100 ML IV PRN ×3 (05:46→17:00)
--- NOTE | 2019-07-27 06:00 | NUR ---
called for albumin level , waiting for call back , will endorse to day shift to follow up if doctors won't call back on my shift
--- NOTE | 2019-07-27 06:19 | NUR ---
AROUSABLE TO LIGHT TOUCH , NO SPONTANEOUS EYE OPENING , WITHDRAWS TO TOUCH
[2019-07-27] MEDS: INSULIN REGULAR, HUMAN 300 UNIT/3 ML VIAL SQ PRN ×4 (06:28→23:51)
--- NOTE | 2019-07-27 06:36 | NUR ---
PATIENT IS RESTLESS
--- NOTE | 2019-07-27 06:54 | NUR ---
Clinical Pharmacy Note: Vancomycin Dosing per Pharmacy Subjective: Vancomycin IV to continue on this 79 yo male patient for septic shock, pna (from assisted) Objective: BUN 25/Scr 2.0 WBC 7.3 Temperature 97.9 ht 180 cm wt 67 kg Vancomycin random 07/26 at 0600:29.3 Vancomycin random 07/27 at 0600:23.6 Assessment/Plan: Patient received vanco 1 gm IVPB x1 on 07/25 at 0600 in ED. Due to elevated srcr, will dose by random level. Since random is over 20, no dose will be given today. Random is on order for tomorrow am for further dosing.
[2019-07-27 07:46] LABS: ABG HCO3 22.6 mmol/L; ABG PCO2 32.7 mmHg (35.0-45.0); ABG PH 7.457 (7.350-7.450); ABG SITE RIGHT RADIAL; ABG TOTAL HEMOGLOBIN 7.8 G/dL (13.5-18.0); COHb 1.4 % (0.5-1.5); MetHb 0.2 % (0.0-1.5); O2Hb 97.6 % (94.0-97.0); VENT MODE VENT - A/C; VT, ABG 600 mL
[2019-07-27] MEDS: HEPARIN SODIUM,PORCINE 5,000 UNITS/ML VIAL SQ SCH ×2 (09:00→21:01)
[2019-07-27] MEDS: IV D5 1/2 NS 1000 ML 1,000 ML IV PRN (09:19)
[2019-07-27] MEDS: FAMOTIDINE. 20 MG/2 ML VIAL IV SCH (09:22)
[2019-07-27] MEDS: ASCORBIC ACID 500 MG TABLET PO SCH (09:22)
[2019-07-27] MEDS: NYSTATIN POWDER 15 GM BOTTLE TOP SCH ×2 (09:23→21:00)
[2019-07-27] MEDS: PROTEIN SUPPLEMENT (PROSTAT) 30 ML LIQUID GT SCH ×2 (13:41→18:26)
[2019-07-27] MEDS: SOD FERRIC GLUC COMPLX/SUCROSE 125 MG in IV NORMAL SALINE 100 ML IV SCH (14:43)
[2019-07-28] VITALS (26 sets, daily range): BP systolic 111–152; BP diastolic 43–86
[2019-07-28] MEDS: PROPOFOL 100 ML IV PRN
[2019-07-28] MEDS: IV D5 1/2 NS 1000 ML 1,000 ML IV PRN (02:04)
[2019-07-28] MEDS: PIPERACILLIN SODIUM/TAZOBACTAM 3.375 G in IV DEXTROSE 5% 50 ML IV SCH ×4 (05:18→23:48)
[2019-07-28 05:21] LABS: BASOPHILS % (AUTO) 0.2 % (0.0-2.0); EOSINOPHILS # (AUTO) 0.1 K/uL (0.0-0.7); EOSINOPHILS % (AUTO) 1.5 % (0.0-7.0); HEMATOCRIT 23.1 % (36.7-47.1); HEMOGLOBIN 7.5 g/dL (12.5-16.3); LYMPHOCYTES # (AUTO) 1.1 K/uL (20.0-40.0); LYMPHOCYTES % (AUTO) 17.5 % (20.5-51.5); MEAN CORPUSCULAR HEMOGLOBIN 26.4 uug (23.8-33.4); MEAN CORPUSCULAR HGB CONC 32 g/dL (32.5-36.3); MEAN CORPUSCULAR VOLUME 81.5 fL (73.0-96.2); MONOCYTES # (AUTO) 0.4 K/uL (2.0-10.0); NEUTROPHILS # (AUTO) 4.8 K/uL (1.8-8.9); NEUTROPHILS % (AUTO) 74.8 % (38.5-71.5); PLATELET COUNT (AUTO) 189 K/uL (152-348); RED BLOOD CELL COUNT(AUTO) 2.84 MIL/uL (4.06-5.63); WHITE BLOOD COUNT (AUTO) 6.4 K/uL (3.6-10.2)
[2019-07-28 05:25] LABS: CARBON DIOXIDE 24 mmol/L (21-32); CHLORIDE 105 mmol/L (98-107); CREATININE 1.7 mg/dL (0.6-1.3); GLUCOSE 188 mg/dL (74-106); MAGNESIUM 1.8 mg/dL (1.8-2.4); PHOSPHOROUS 2.9 mg/dL (2.5-4.9); POTASSIUM 3.8 mmol/L (3.5-5.1); UREA NITROGEN, BLOOD 26 mg/dL (7-18); VANCOMYCIN,RANDOM 17.6 ug/mL (18.0-26.0)
[2019-07-28] MEDS: BLOOD SUGAR DIAGNOSTIC 1 EACH STRIP VI SCH ×3 (05:30→17:21)
[2019-07-28] MEDS: INSULIN REGULAR, HUMAN 300 UNIT/3 ML VIAL SQ PRN ×3 (05:32→17:22)
--- NOTE | 2019-07-28 07:13 | NUR ---
Pt received with IV propofol turned off per weaning protocol. Pt currently on CPAP, PS 8, 30% FiO2 for weaning trial and ABG's to be done at 0800. VSS wnl. Nad noted.
[2019-07-28] MEDS ORDERED: VANCOMYCIN IV 1,000 MG in IV DEXTROSE 5% 250 ML IV ONE (08:00)
--- NOTE | 2019-07-28 08:00 | NUR ---
RIGHT HIP INCISION , MARIELY INTACT , DRAINING WITH SERO SANGUINOUS
--- NOTE | 2019-07-28 08:07 | NUR ---
Clinical Pharmacy Note: Vancomycin Dosing per Pharmacy Subjective: Vancomycin IV to continue on this 79 yo male patient for septic shock, pna (from care home) Objective: BUN 26/Scr 1.7 WBC 6.4 Temperature 99 ht 180 cm wt 67 kg Vancomycin random 07/26 at 0600:29.3 Vancomycin random 07/27 at 0600:23.6 Vancomycin random 07/28 at 0600:17.6 Assessment/Plan: Due to elevated srcr, will dose by random level. Since random is 17.6, will give vanco 1gm IVPB x1 today at 0800. Pharmacy shall review the renal function in am & decide when to order next random for further dosing. Will follow
[2019-07-28 08:16] LABS: ABG BASE EXCESS -2.7 mmol/L; ABG HCO3 20.6 mmol/L; ABG PCO2 29.5 mmHg (35.0-45.0); ABG PH 7.462 (7.350-7.450); ABG PO2 93.1 mmHg (75.0-100.0); ABG SITE RIGHT RADIAL; ABG TOTAL HEMOGLOBIN 7.9 G/dL (13.5-18.0); COHb 1.3 % (0.5-1.5); MetHb 0.2 % (0.0-1.5); O2Hb 95.8 % (94.0-97.0); VENT MODE VENT - PSUPPORT
--- NOTE | 2019-07-28 08:25 | NUR ---
Dr. Adams here to see pt. Full report given. New orders received.
[2019-07-28] MEDS: PROTEIN SUPPLEMENT (PROSTAT) 30 ML LIQUID GT SCH ×2 (08:30→17:09)
[2019-07-28] MEDS ORDERED: ALBUTEROL SULFATE 2.5 MG/3 ML NEBU NEB PRN (08:30)
[2019-07-28] MEDS: ASCORBIC ACID 500 MG TABLET PO SCH (08:30)
[2019-07-28] MEDS: FAMOTIDINE. 20 MG/2 ML VIAL IV SCH (08:30)
[2019-07-28] MEDS ORDERED: DC PROPOFOL ONCE EXTUBATED XX PRN (08:30)
[2019-07-28] MEDS: HEPARIN SODIUM,PORCINE 5,000 UNITS/ML VIAL SQ SCH ×2 (08:32→21:04)
[2019-07-28] MEDS: NYSTATIN POWDER 15 GM BOTTLE TOP SCH ×2 (08:33→23:49)
--- NOTE | 2019-07-28 09:40 | NUR ---
Pt awake and alert, following commands. RT at the bedside for extubation as ordered by . DARRON wnl. Nad noted.
[2019-07-28 09:41] LABS: *OCCULT BLOOD STOOL NEGATIVE (NEGATIVE)
--- NOTE | 2019-07-28 09:41 | NUR ---
Pt successfully extubated by RT. Pt placed on 2L nasal cannula. VSS and saturating 99% wnl. Nad noted. Will continue to monitor.
--- NOTE | 2019-07-28 09:45 | NUR ---
PT EXTUBATED AND PLACED ON 2 LPM NASAL CANNULA. DOING WELL, NO SOB NOTED. BVM AT BEDSIDE. RN HALEY AWARE. WILL CONTINUE TO MONITOR.
[2019-07-28] MEDS: GLUCERNA 1.2 1000ML LIQUID GT PRN (10:00)
[2019-07-28] MEDS ORDERED: MAGNESIUM SULFATE/D5W 100 ML IV SCH (11:45)
[2019-07-28] MEDS ORDERED: FUROSEMIDE 20 MG/2 ML VIAL IV PRN (11:45)
[2019-07-28] MEDS: SOD FERRIC GLUC COMPLX/SUCROSE 125 MG in IV NORMAL SALINE 100 ML IV SCH (13:27)
--- NOTE | 2019-07-28 15:48 | NUR ---
Telephone consent for blood transfusion signed by Jocelyne (): . alert and oriented during our conversation and is aware of the pt receiving blood.
--- NOTE | 2019-07-28 22:43 | NUR ---
* Maintains vital signs WNL AND SUCTION ACCORDINGLY Addendum: 07/28/19 at 2244 by MADISON LEE RN Amended: Links added.
--- NOTE | 2019-07-28 22:44 | NUR ---
* Maintains vital signs WNL * Maintains optimal lab values PATIENT IS ON ANTIBIOTICS Addendum: 07/28/19 at 2244 by MADISON LEE RN Amended: Links added.
--- NOTE | 2019-07-28 22:45 | NUR ---
* Maintains baseline ABG's * Evidences usual mental status Addendum: 07/28/19 at 2245 by MADISON LEE RN Amended: Links added.
--- NOTE | 2019-07-28 23:15 | NUR ---
1 UNIT OF PRBC GIVEN , NO REACTION NOTED
[2019-07-29] VITALS (19 sets, daily range): BP systolic 111–147; BP diastolic 48–77
[2019-07-29] MEDS: BLOOD SUGAR DIAGNOSTIC 1 EACH STRIP VI SCH ×4 (00:30→17:49)
[2019-07-29] MEDS: INSULIN REGULAR, HUMAN 300 UNIT/3 ML VIAL SQ PRN ×4 (00:32→17:48)
[2019-07-29] MEDS: PIPERACILLIN SODIUM/TAZOBACTAM 3.375 G in IV DEXTROSE 5% 50 ML IV SCH ×3 (05:26→17:33)
[2019-07-29 05:37] LABS: BASOPHILS % (AUTO) 0.3 % (0.0-2.0); EOSINOPHILS # (AUTO) 0.1 K/uL (0.0-0.7); EOSINOPHILS % (AUTO) 0.7 % (0.0-7.0); HEMATOCRIT 27.3 % (36.7-47.1); LYMPHOCYTES # (AUTO) 1.2 K/uL (20.0-40.0); LYMPHOCYTES % (AUTO) 14.5 % (20.5-51.5); MEAN CORPUSCULAR HEMOGLOBIN 26.5 uug (23.8-33.4); MEAN CORPUSCULAR HGB CONC 33 g/dL (32.5-36.3); MEAN CORPUSCULAR VOLUME 80.7 fL (73.0-96.2); MONOCYTES # (AUTO) 0.4 K/uL (2.0-10.0); MONOCYTES % (AUTO) 4.9 % (0.0-11.0); NEUTROPHILS # (AUTO) 6.5 K/uL (1.8-8.9); NEUTROPHILS % (AUTO) 79.6 % (38.5-71.5); PLATELET COUNT (AUTO) 217 K/uL (152-348); RED BLOOD CELL COUNT(AUTO) 3.38 MIL/uL (4.06-5.63); WHITE BLOOD COUNT (AUTO) 8.2 K/uL (3.6-10.2)
[2019-07-29 05:42] LABS: ALANINE AMINOTRANSFERASE 13 U/L (16-63); ALKALINE PHOSPHATASE 144 U/L (50-136); ASPARTATE AMINOTRANSFERASE 22 U/L (15-37); BILIRUBIN,TOTAL 0.5 mg/dL (0.2-1.0); CARBON DIOXIDE 27 mmol/L (21-32); CHLORIDE 105 mmol/L (98-107); CREATININE 1.6 mg/dL (0.6-1.3); GLUCOSE 187 mg/dL (74-106); MAGNESIUM 1.9 mg/dL (1.8-2.4); PHOSPHOROUS 2.6 mg/dL (2.5-4.9); POTASSIUM 3.8 mmol/L (3.5-5.1); TOTAL PROTEIN, SERUM 6.4 g/dL (6.4-8.2); UREA NITROGEN, BLOOD 26 mg/dL (7-18)
--- NOTE | 2019-07-29 06:14 | NUR ---
doctor aware of albumin level
[2019-07-29] MEDS: FAMOTIDINE 20 MG TABLET GT SCH (07:44)
[2019-07-29] MEDS: ASCORBIC ACID 500 MG TABLET PO SCH (07:44)
[2019-07-29] MEDS: ASPIRIN 81 MG TAB.CHEW GT SCH (07:44)
[2019-07-29] MEDS: NYSTATIN POWDER 15 GM BOTTLE TOP SCH ×2 (07:45→20:45)
[2019-07-29 07:46] LABS: ABG BASE EXCESS 0.3 mmol/L; ABG HCO3 23.4 mmol/L; ABG PCO2 32.1 mmHg (35.0-45.0); ABG PH 7.481 (7.350-7.450); ABG PO2 65.3 mmHg (75.0-100.0); ABG SITE RIGHT RADIAL; ABG TOTAL HEMOGLOBIN 9.3 G/dL (13.5-18.0); COHb 1.3 % (0.5-1.5); MetHb 0.3 % (0.0-1.5); O2Hb 92.2 % (94.0-97.0); VENT MODE Nasal Cannula
[2019-07-29] MEDS: PROTEIN SUPPLEMENT (PROSTAT) 30 ML LIQUID GT SCH ×2 (07:46→17:34)
[2019-07-29] MEDS: HEPARIN SODIUM,PORCINE 5,000 UNITS/ML VIAL SQ SCH ×2 (07:49→20:44)
--- NOTE | 2019-07-29 08:50 | NUR ---
Dr. Adams here to see pt. Full report given. New orders received.
[2019-07-29] MEDS: GLUCERNA 1.2 1000ML LIQUID GT PRN (10:10)
--- NOTE | 2019-07-29 13:20 | NUR ---
Speech therapist here to see pt for swallow eval.
--- NOTE | 2019-07-29 19:22 | NUR ---
Full SBAR report given to shift leader AALIYAH Lundy.
--- NOTE | 2019-07-29 19:40 | NUR ---
Received report from CCU nurse at 1920. Picked up patient from CCU with PROP MAKER, patient is in stable condition. Physical assessment done, patient is awake but not verbally responsive. On O2 2lpm via nasal cannula. No noted difficulty of breathing or any acute cardio/respiratory distress. NG tube on R nare, intact and placement checked. Situated patient on room 304. DVT pumps turned on. First step mattress activated. Side rails up x 2. Bed alarm in place. Placed patient on high fowlers/aspiration precaution. Skin issues noted and pictures are present in the chart. Will perform needed wound care during shift. Sinus rhythm at 83, some rare PVC's. Will continue to monitor.
[2019-07-29] MEDS ORDERED: VANCOMYCIN IV 500 MG in IV DEXTROSE 5% 100 ML IV ONE (23:00)
--- NOTE | 2019-07-30 | NUR ---
Patient seen and examined by ID MARKET NEWS REPORTER Maxwell, with new orders carried out. 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 There is no wound culture done during admission, new orders received to obtain culture. Will send to lab in AM. VAncomycin 500mg x 1 dose given at this time, after pharmacy cleared and drug received from sulfuric acid plant supervisor. Will monitor for adverse effects. Sinus rhythm on tele at 75.
[2019-07-30] MEDS: BLOOD SUGAR DIAGNOSTIC 1 EACH STRIP VI SCH ×5 (00:18→17:26)
[2019-07-30] MEDS: PIPERACILLIN SODIUM/TAZOBACTAM 3.375 G in IV DEXTROSE 5% 50 ML IV SCH ×4 (01:02→17:27)
[2019-07-30 01:48] VITALS: BP 127/62
[2019-07-30 06:22] VITALS: BP 124/61
--- NOTE | 2019-07-30 06:30 | NUR ---
Patient stable through the night. Novak catheter output 700cc throughout shift. Tube Feeding stopped at 0600, flushed NG tube with 60cc water. Naso-pharyngeal suctioning done, minimal thin secretions obtained, slightly blood tinged. Pt with no signs of acute distress. O2 kept at 2LPM via nasal cannula. Wound culture obtained on R hip obtained and sent to lab. Wound care provided, still with sanguinous drainage, but site is free of any redness, warmth or foul smell. Covered with dry dressing/surgical bandage. Good perineal care also provided, patient with 1x BM. Full linen change rendered. Blood sugar checked at around 0610: 68, administered orange juice 125cc via Gtube rechecked: 135. Insulin not given at this time. Sinus Rhythm 83. Will endorse accordingly.
[2019-07-30 06:46] LABS: BASOPHILS % (AUTO) 0.2 % (0.0-2.0); EOSINOPHILS # (AUTO) 0.1 K/uL (0.0-0.7); HEMATOCRIT 24.4 % (36.7-47.1); HEMOGLOBIN 7.9 g/dL (12.5-16.3); LYMPHOCYTES # (AUTO) 1.1 K/uL (20.0-40.0); LYMPHOCYTES % (AUTO) 16.8 % (20.5-51.5); MEAN CORPUSCULAR HEMOGLOBIN 26.7 uug (23.8-33.4); MEAN CORPUSCULAR HGB CONC 32 g/dL (32.5-36.3); MEAN CORPUSCULAR VOLUME 82.6 fL (73.0-96.2); MONOCYTES # (AUTO) 0.4 K/uL (2.0-10.0); MONOCYTES % (AUTO) 5.2 % (0.0-11.0); NEUTROPHILS # (AUTO) 5.2 K/uL (1.8-8.9); NEUTROPHILS % (AUTO) 76.8 % (38.5-71.5); PLATELET COUNT (AUTO) 179 K/uL (152-348); RED BLOOD CELL COUNT(AUTO) 2.95 MIL/uL (4.06-5.63); WHITE BLOOD COUNT (AUTO) 6.7 K/uL (3.6-10.2)
--- NOTE | 2019-07-30 08:00 | NUR ---
REMAINS OBTUNDED, NO SS OF PAIN OR DISTRESS WITH 2-3L NC SATURATING 96%. HOB ELEVATED 35 DEGREES. TOLERATING FEEDING WELL. SR ON MONITOR
[2019-07-30 08:04] LABS: BILIRUBIN,TOTAL 0.3 mg/dL (0.2-1.0); CREATININE 1.3 mg/dL (0.6-1.3); MAGNESIUM 2.1 mg/dL (1.8-2.4); PHOSPHOROUS 3.2 mg/dL (2.5-4.9); POTASSIUM 3.8 mmol/L (3.5-5.1); TOTAL PROTEIN, SERUM 6.2 g/dL (6.4-8.2)
[2019-07-30] MEDS: ASPIRIN 81 MG TAB.CHEW GT SCH (08:32)
[2019-07-30] MEDS: FAMOTIDINE 20 MG TABLET GT SCH (08:32)
[2019-07-30] MEDS: ASCORBIC ACID 500 MG TABLET PO SCH (08:32)
[2019-07-30] MEDS: PROTEIN SUPPLEMENT (PROSTAT) 30 ML LIQUID GT SCH ×2 (08:33→17:27)
[2019-07-30] MEDS: HEPARIN SODIUM,PORCINE 5,000 UNITS/ML VIAL SQ SCH ×2 (08:34→21:00)
[2019-07-30] MEDS: NYSTATIN POWDER 15 GM BOTTLE TOP SCH ×2 (08:50→21:00)
--- NOTE | 2019-07-30 08:56 | NUR ---
Clinical Pharmacy Note: Vancomycin Dosing per Pharmacy Subjective: Vancomycin IV to re-start on this 79 yo male patient for septic shock, [facility] Objective: BUN 26/Scr 1.6 WBC 6.7 Temperature 97.9 ht 180 cm wt 67 kg Vancomycin random 07/26 at 0600:29.3 Vancomycin random 07/27 at 0600:23.6 Vancomycin random 07/28 at 0600:17.6 Vancomycin random 07/30 at 0600:18.4 Assessment/Plan: Patient received vanco 500mg IVPB x1 on 07/29 at 2330. Due to elevated srcr, will dose by random level. Since random is 18.4 mcg/ml, will give vanco 1gm IVPB x1 today at 1000. Pharmacy shall review the renal function in am & decide when to order next random for further dosing. Will follow
[2019-07-30] MEDS: GLUCERNA 1.2 1000ML LIQUID GT PRN ×2 (09:16→14:52)
[2019-07-30] MEDS ORDERED: VANCOMYCIN IV 1,000 MG in IV DEXTROSE 5% 250 ML IV ONE (10:00)
[2019-07-30] MEDS ORDERED: EPOETIN ALFA 10,000 UNITS/ML VIAL SQ ONE (11:30)
[2019-07-30 11:33] VITALS: BP 123/45
[2019-07-30] MEDS: INSULIN REGULAR, HUMAN 300 UNIT/3 ML VIAL SQ PRN ×2 (12:22→17:33)
--- NOTE | 2019-07-30 13:25 | NUR ---
NO ACUTE CHANGE, REQUIRES FREQUENT ORAL SUCTIONING NOTED THICK WHITE SECRETION. GOOD ORAL CARE MAINTAINED
[2019-07-30 16:00] VITALS: BP 132/66
--- NOTE | 2019-07-30 16:47 | NUR ---
CONTINUE WITH CURRENT TX PLAN. MODERATE AMOUNT OF SEROUS SANGUINOUS DRAINAGE NOTED DURING DRESSING CHANGE AT 1700. CONTINUE WITH IV ATB. AFEBRILE
--- NOTE | 2019-07-30 20:30 | NUR ---
Patient intermittently sleeping, NG tube intact nd patent, using o2 @ 2lpm via nc. Novak catether draining yellow urine. rt hip wound saturated with serosanguineous fluid. MD notified and hold Heparin Per order .Will continue top monitor
[2019-07-30 20:40] VITALS: BP 123/57
[2019-07-31] VITALS (12 sets, daily range): BP systolic 105–151; BP diastolic 52–89
[2019-07-31] MEDS: PIPERACILLIN SODIUM/TAZOBACTAM 3.375 G in IV DEXTROSE 5% 50 ML IV SCH ×5 (00:21→23:33)
[2019-07-31] MEDS: BLOOD SUGAR DIAGNOSTIC 1 EACH STRIP VI SCH ×5 (00:21→23:33)
[2019-07-31] MEDS: INSULIN REGULAR, HUMAN 300 UNIT/3 ML VIAL SQ PRN ×5 (00:24→23:35)
[2019-07-31] MEDS: GLUCERNA 1.2 1000ML LIQUID GT PRN ×2 (05:55→10:00)
[2019-07-31 06:36] LABS: BASOPHILS % (AUTO) 0.2 % (0.0-2.0); EOSINOPHILS # (AUTO) 0.1 K/uL (0.0-0.7); EOSINOPHILS % (AUTO) 1.3 % (0.0-7.0); HEMATOCRIT 23.8 % (36.7-47.1); HEMOGLOBIN 7.8 g/dL (12.5-16.3); LYMPHOCYTES # (AUTO) 1.1 K/uL (20.0-40.0); LYMPHOCYTES % (AUTO) 16.1 % (20.5-51.5); MEAN CORPUSCULAR HEMOGLOBIN 27.2 uug (23.8-33.4); MEAN CORPUSCULAR HGB CONC 33 g/dL (32.5-36.3); MEAN CORPUSCULAR VOLUME 83.3 fL (73.0-96.2); MONOCYTES # (AUTO) 0.4 K/uL (2.0-10.0); MONOCYTES % (AUTO) 5.4 % (0.0-11.0); NEUTROPHILS # (AUTO) 5.1 K/uL (1.8-8.9); PLATELET COUNT (AUTO) 176 K/uL (152-348); RED BLOOD CELL COUNT(AUTO) 2.86 MIL/uL (4.06-5.63); WHITE BLOOD COUNT (AUTO) 6.7 K/uL (3.6-10.2)
[2019-07-31 06:54] LABS: ALANINE AMINOTRANSFERASE 34 U/L (16-63); ALKALINE PHOSPHATASE 360 U/L (50-136); ASPARTATE AMINOTRANSFERASE 34 U/L (15-37); BILIRUBIN,DIRECT 0.1 mg/dL (0.0-0.2); BILIRUBIN,TOTAL 0.2 mg/dL (0.2-1.0); CARBON DIOXIDE 31 mmol/L (21-32); CHLORIDE 106 mmol/L (98-107); CREATININE 1.4 mg/dL (0.6-1.3); GLUCOSE 218 mg/dL (74-106); PHOSPHOROUS 2.5 mg/dL (2.5-4.9); TOTAL PROTEIN, SERUM 6.1 g/dL (6.4-8.2); UREA NITROGEN, BLOOD 28 mg/dL (7-18)
--- NOTE | 2019-07-31 07:10 | NUR ---
RECEIVED PATIENT AWAKE INN BED ALERT TO NAME. NO ACUTE DISTRESS NOTED. NG TUBE IN PLACE. PATIENT ON ISOLATION FOR POSSIBLE MRSA OF THE WOUND. BED IN LOWEST POSITION, SIDE RAILS UP X2, CALL LIGHT WITHIN REACH. WILL CONTINUE TO MONITOR.
[2019-07-31] MEDS: PROTEIN SUPPLEMENT (PROSTAT) 30 ML LIQUID GT SCH ×2 (08:38→17:22)
[2019-07-31] MEDS: FAMOTIDINE 20 MG TABLET GT SCH (08:39)
[2019-07-31] MEDS: NYSTATIN POWDER 15 GM BOTTLE TOP SCH ×2 (08:39→21:17)
[2019-07-31] MEDS: ASPIRIN 81 MG TAB.CHEW GT SCH (08:39)
[2019-07-31] MEDS: HEPARIN SODIUM,PORCINE 5,000 UNITS/ML VIAL SQ SCH (08:39)
[2019-07-31] MEDS: ASCORBIC ACID 500 MG TABLET PO SCH (08:39)
[2019-07-31] MEDS ORDERED: FUROSEMIDE 20 MG/2 ML VIAL IV PRN (10:15)
[2019-07-31] MEDS ORDERED: VANCOMYCIN IV 1,000 MG in IV DEXTROSE 5% 250 ML IV ONE (11:00)
--- NOTE | 2019-07-31 12:07 | NUR ---
Clinical Pharmacy Note: Vancomycin Dosing per Pharmacy Subjective: Vancomycin IV to re-start on this 79 yo male patient for septic shock, pna (from [facility]) Objective: BUN 28/Scr 1.4 WBC 6.7 Temperature 99.4 ht 180 cm wt 67 kg Vancomycin random 07/26 at 0600:29.3 Vancomycin random 07/27 at 0600:23.6 Vancomycin random 07/28 at 0600:17.6 Vancomycin random 07/30 at 0600:18.4 Vancomycin random 07/31 at 0600: 19.5 Assessment/Plan: Due to elevated srcr, will dose by random level. Per today's random, dosed another 1gm vanco for today at 1100. Will follow labs tomorrow and decide when next to order random per renal function. Will continue to monitor
--- NOTE | 2019-07-31 18:08 | NUR ---
PATIENT RESTED INTERMITTENTLY THROUGHOUT DAY. NO ACUTE DISTRESS NOTED. STARTED PATIENTS FEEDING THROUGHOUT DAY. PATIENT DEEP SUCTIONED WITH INCREASE AMOUNT OF SECRETIONS. ADMINISTERED BLOOD TRANSFUSION WITHOUT ANY REACTION. DRESSING CHANGED, SEROSANGUINEOUS DRAINAGE. PATIENT TAKEN DOWN TO CT OF THE RIGHT HIP RESULTS PENDING. STOOL SAMPLE TAKEN. SAFETY MEASURES PROVIDED. WILL ENDORSE TO ONCOMING NURSE.
[2019-08-01 00:35] VITALS: BP 131/54
[2019-08-01 01:10] LABS: ABG BASE EXCESS 4.8 mmol/L; ABG HCO3 28.2 mmol/L; ABG PCO2 35.4 mmHg (35.0-45.0); ABG PH 7.519 (7.350-7.450); ABG SITE RIGHT RADIAL; ABG TOTAL HEMOGLOBIN 5.1 G/dL (13.5-18.0); COHb 2.6 % (0.5-1.5); MetHb 0.4 % (0.0-1.5); O2Hb 94.7 % (94.0-97.0); VENT MODE Nasal Cannula
[2019-08-01] MEDS: GLUCERNA 1.2 1000ML LIQUID GT PRN (04:06)
[2019-08-01 05:38] VITALS: BP 121/51
[2019-08-01] MEDS: INSULIN REGULAR, HUMAN 300 UNIT/3 ML VIAL SQ PRN ×3 (06:38→18:28)
[2019-08-01] MEDS: PIPERACILLIN SODIUM/TAZOBACTAM 3.375 G in IV DEXTROSE 5% 50 ML IV SCH ×3 (06:39→17:14)
[2019-08-01] MEDS: BLOOD SUGAR DIAGNOSTIC 1 EACH STRIP VI SCH ×3 (06:39→18:29)
--- NOTE | 2019-08-01 06:44 | NUR ---
pATIENT RESTED IN BETWEEN CARE; SUCTIONED SECRETIONS MULTIPLE TIMES; VIA ORALLY AND NASOTRACHEAL; bm X2; CLEANED AND REPOSITIONED; SAFETY MAINTAINED; CONITNUE TO MONITOR; CONTINUE PLAN OF CARE.
[2019-08-01 06:55] LABS: BILIRUBIN,TOTAL 0.2 mg/dL (0.2-1.0); CREATININE 1.3 mg/dL (0.6-1.3); PHOSPHOROUS 2.7 mg/dL (2.5-4.9); POTASSIUM 4.3 mmol/L (3.5-5.1); TOTAL PROTEIN, SERUM 6.2 g/dL (6.4-8.2)
--- NOTE | 2019-08-01 07:10 | NUR ---
RECEIVED PATIENT RESTING IN BED, AWAKE. NO ACUTE DISTRESS NOTED. BED IN LOWEST POSITION, SIDE RAILS UP X2, CALL LIGHT WITHIN REACH. WILL CONTINUE TO MONITOR.
--- NOTE | 2019-08-01 07:34 | NUR ---
lactic acid 2.3, PAMELA REFRACTORY FURNACE DESIGNER MADE AWARE; NO NEW ORDERS.
[2019-08-01 07:48] LABS: MAGNESIUM 1.8 mg/dL (1.8-2.4)
[2019-08-01 07:49] LABS: BASOPHILS % (AUTO) 0.3 % (0.0-2.0); EOSINOPHILS # (AUTO) 0.1 K/uL (0.0-0.7); EOSINOPHILS % (AUTO) 1.4 % (0.0-7.0); LYMPHOCYTES # (AUTO) 1.1 K/uL (20.0-40.0); LYMPHOCYTES % (AUTO) 15.7 % (20.5-51.5); MEAN CORPUSCULAR HGB CONC 33 g/dL (32.5-36.3); MONOCYTES # (AUTO) 0.5 K/uL (2.0-10.0); MONOCYTES % (AUTO) 6.9 % (0.0-11.0); NEUTROPHILS # (AUTO) 5.3 K/uL (1.8-8.9); NEUTROPHILS % (AUTO) 75.7 % (38.5-71.5); PLATELET COUNT (AUTO) 175 K/uL (152-348); RED BLOOD CELL COUNT(AUTO) 3.51 MIL/uL (4.06-5.63)
[2019-08-01 07:54] LABS: HEMATOCRIT 30.2 % (36.7-47.1); HEMOGLOBIN 9.8 g/dL (12.5-16.3)
[2019-08-01] MEDS: FAMOTIDINE 20 MG TABLET GT SCH (08:43)
[2019-08-01] MEDS: ASPIRIN 81 MG TAB.CHEW GT SCH (08:43)
[2019-08-01] MEDS: PROTEIN SUPPLEMENT (PROSTAT) 30 ML LIQUID GT SCH ×2 (08:43→17:14)
[2019-08-01] MEDS: ASCORBIC ACID 500 MG TABLET PO SCH (08:43)
[2019-08-01] MEDS: NYSTATIN POWDER 15 GM BOTTLE TOP SCH ×2 (08:43→21:14)
[2019-08-01] MEDS ORDERED: VANCOMYCIN IV 1,000 MG in IV DEXTROSE 5% 250 ML IV ONE (10:00)
[2019-08-01 11:47] VITALS: BP 124/54
[2019-08-01 16:05] VITALS: BP 106/47
--- NOTE | 2019-08-01 16:09 | NUR ---
Clinical Pharmacy Note: Vancomycin Dosing per Pharmacy Subjective: Vancomycin IV to re-start on this 79 yo male patient for septic shock, pna (from assisted) Objective: BUN 26/Scr 1.3 WBC 7.0 Temperature 99.9 ht 180 cm wt 67 kg Vancomycin random 07/26 at 0600:29.3 Vancomycin random 07/27 at 0600:23.6 Vancomycin random 07/28 at 0600:17.6 Vancomycin random 07/30 at 0600:18.4 Vancomycin random 07/31 at 0600: 19.5 Vancomycin random 08/01 at 0825: 17.5 Assessment/Plan: Due to elevated srcr, will dose by random level. Per today's random, dosed another 1gm vanco for today at 1000. Next random for tomorrow with am labs. If renal function remains nubia, may consider starting regimen. Otherwise will continue dosing per level. Will continue to monitor
--- NOTE | 2019-08-01 18:36 | NUR ---
PATIENT RESTED THROUGHOUT DAY. NO ACUTE DISTRESS NOTED. PATIENT SUCTIONED THROUGHOUT SHIFT WITH A LOT OF SECRETIONS. WOUND DRESSINGS CHANGED. SAFETY MEASURES PROVIDED. WILL ENDORSE TO ONCOMING NURSE.
--- NOTE | 2019-08-01 19:20 | NUR ---
Received patient lying in bed. HOB elevated. Asleep, arouse to tactile stimuli. Non-verbal at this time. In no acute distress. No signs or symptoms of pain or SOB. On O2 at 2LPM via NC in place. Right upper arm PICC line intact and patent. NGT in place. GT feeding infusing. NSR on tele at 88/min. Novak catheter intact and draining via gravity, yellow urine output with sediments. Safety measure initiated. Continue to monitor.
[2019-08-01 20:00] VITALS: BP 113/46
[2019-08-01 20:15] VITALS: BP 113/46
[2019-08-02] VITALS: BP 114/55
[2019-08-02] MEDS: BLOOD SUGAR DIAGNOSTIC 1 EACH STRIP VI SCH ×4 (00:04→18:00)
[2019-08-02] MEDS: PIPERACILLIN SODIUM/TAZOBACTAM 3.375 G in IV DEXTROSE 5% 50 ML IV SCH ×4 (00:05→18:32)
[2019-08-02] MEDS: INSULIN REGULAR, HUMAN 300 UNIT/3 ML VIAL SQ PRN ×3 (00:05→12:14)
--- NOTE | 2019-08-02 02:06 | NUR ---
Patient pulled out NGT, inserted new NGT FR 14. Dr. Ovalle made aware. Abdominal xray to be done to verify placement. NGT feeding stop at this time.
[2019-08-02] MEDS: GLUCERNA 1.2 1000ML LIQUID GT PRN (03:08)
[2019-08-02 05:00] VITALS: BP 98/42
--- NOTE | 2019-08-02 06:29 | NUR ---
Non-verbal, confused and disoriented. In no acute distress. No further signs of pain, No SOB. On O2 at 2LPM via NC. Right upper arm PICC line intact and patent. No adverse reaction noted from IV ABX. NGT remains intact to right nares. NGT feeding infusing. NSR on tele at 92/min. Novak catheter intact and draining via gravity. Safety measure maintained.
[2019-08-02 06:57] LABS: BASOPHILS % (AUTO) 0.3 % (0.0-2.0); CARBON DIOXIDE 32 mmol/L (21-32); CHLORIDE 99 mmol/L (98-107); CREATININE 1.5 mg/dL (0.6-1.3); EOSINOPHILS # (AUTO) 0.1 K/uL (0.0-0.7); EOSINOPHILS % (AUTO) 1.5 % (0.0-7.0); GLUCOSE 167 mg/dL (74-106); LYMPHOCYTES # (AUTO) 1.2 K/uL (20.0-40.0); LYMPHOCYTES % (AUTO) 16.4 % (20.5-51.5); MAGNESIUM 1.8 mg/dL (1.8-2.4); MEAN CORPUSCULAR HEMOGLOBIN 28.1 uug (23.8-33.4); MEAN CORPUSCULAR HGB CONC 33 g/dL (32.5-36.3); MONOCYTES # (AUTO) 0.3 K/uL (2.0-10.0); MONOCYTES % (AUTO) 4.7 % (0.0-11.0); NEUTROPHILS # (AUTO) 5.5 K/uL (1.8-8.9); NEUTROPHILS % (AUTO) 77.1 % (38.5-71.5); PHOSPHOROUS 3.1 mg/dL (2.5-4.9); PLATELET COUNT (AUTO) 172 K/uL (152-348); POTASSIUM 3.7 mmol/L (3.5-5.1); RED BLOOD CELL COUNT(AUTO) 2.92 MIL/uL (4.06-5.63); UREA NITROGEN, BLOOD 28 mg/dL (7-18); VANCOMYCIN,RANDOM 20.6 ug/mL (18.0-26.0); WHITE BLOOD COUNT (AUTO) 7.1 K/uL (3.6-10.2)
--- NOTE | 2019-08-02 07:10 | NUR ---
RECEIVED PATIENT ASLEEP IN BED. NO ACUTE DISTRESS NOTED. PATIENT ON MITTENS DUE TO TRYING TO PULL OUT NG TUBE. NO ACUTE EVENTS DURING THE NIGHT. BED IN LOWEST POSITION, SIDE RAILS UP X2, CALL LIGHT WITHIN REACH WILL CONTINUE TO MONITOR.
[2019-08-02 07:13] LABS: HEMOGLOBIN 8.2 g/dL (12.5-16.3)
[2019-08-02 07:14] LABS: HEMATOCRIT 24.8 % (36.7-47.1); MEAN CORPUSCULAR VOLUME 84.8 fL (73.0-96.2)
[2019-08-02] MEDS: NYSTATIN POWDER 15 GM BOTTLE TOP SCH (08:20)
[2019-08-02] MEDS: FAMOTIDINE 20 MG TABLET GT SCH (08:20)
[2019-08-02] MEDS: ASCORBIC ACID 500 MG TABLET PO SCH (08:20)
[2019-08-02] MEDS: ASPIRIN 81 MG TAB.CHEW GT SCH (08:20)
[2019-08-02] MEDS: PROTEIN SUPPLEMENT (PROSTAT) 30 ML LIQUID GT SCH ×2 (08:46→17:25)
--- NOTE | 2019-08-02 11:25 | NUR ---
Clinical Pharmacy Note: Vancomycin Dosing per Pharmacy Subjective: Vancomycin IV to re-start on this 79 yo male patient for septic shock, pna (from snf) Objective: BUN 28/Scr 1.5 WBC 7.1 Temperature 97.7 ht 180 cm wt 67 kg Vancomycin random 07/26 at 0600:29.3 Vancomycin random 07/27 at 0600:23.6 Vancomycin random 07/28 at 0600:17.6 Vancomycin random 07/30 at 0600:18.4 Vancomycin random 07/31 at 0600: 19.5 Vancomycin random 08/01 at 0825: 17.5 Vancomycin random 08/02 at 0825: 20.6 Assessment/Plan: Due to elevated srcr, will dose by random level. Per today's random, dosed another 1gm vanco for today at 1700 (expected to be below 20 mcg/ml by 1700). Next random for tomorrow at 1800. If renal function remains nubia, may consider starting regimen. Otherwise will continue dosing per level. Will continue to monitor
[2019-08-02 11:41] VITALS: BP 118/72
[2019-08-02 16:02] VITALS: BP 123/56
[2019-08-02] MEDS ORDERED: VANCOMYCIN IV 1,000 MG in IV DEXTROSE 5% 250 ML IV ONE (17:00)
--- NOTE | 2019-08-02 19:59 | NUR ---
Patient left to [facility] via EMT in stable condition. NGT intact to the right nares, PICC line to the right upper arm is intact and patent. Dressing to the right hip changed. Report given by day shift nurse to Jass at [facility]. Discharge papers given to EMT.
== END 2019-08-02 20:00 | DRG 871 ==
LOC: ER 05:59 → CCU 09:22 → TELE3 07-29 19:35 → MEDSURG3 08-01 12:11 → TELE3 08-01 13:43
PROVIDERS: ADMIT Student in an Organized Health Care Education/Training Program; ATTEND Student in an Organized Health Care Education/Training Program
PROC: 5A1945Z Respiratory Ventilation, 24-96 Consecutive Hours (ICD-10-PCS; principal; 2019-07-25)
PROC: 0BH17EZ Insertion of Endotracheal Airway into Trachea, Via Natural or Artificial Opening (ICD-10-PCS; 2019-07-25)
PROC: 0DH67UZ Insertion of Feeding Device into Stomach, Via Natural or Artificial Opening (ICD-10-PCS; 2019-07-26)
PROC: 3E0G76Z Introduction of Nutritional Substance into Upper GI, Via Natural or Artificial Opening (ICD-10-PCS; 2019-07-26)
PROC: 30233N1 Transfusion of Nonautologous Red Blood Cells into Peripheral Vein, Percutaneous Approach (ICD-10-PCS; 2019-07-28)
DX: A41.9 Sepsis, unspecified organism (principal); J96.01 Acute respiratory failure with hypoxia; J15.6 Pneumonia due to other Gram-negative bacteria; E43 Unspecified severe protein-calorie malnutrition; J69.0 Pneumonitis due to inhalation of food and vomit; N17.0 Acute kidney failure with tubular necrosis; J96.02 Acute respiratory failure with hypercapnia; R65.21 Severe sepsis with septic shock; G92 Toxic encephalopathy; T84.51XA Infection and inflammatory reaction due to internal right hip prosthesis, initial encounter; I13.0 Hypertensive heart and chronic kidney disease with heart failure and stage 1 through stage 4 chronic kidney disease, or unspecified chronic kidney disease; I50.32 Chronic diastolic (congestive) heart failure; F02.81 Dementia in other diseases classified elsewhere, unspecified severity, with behavioral disturbance; D68.59 Other primary thrombophilia; E87.1 Hypo-osmolality and hyponatremia; J98.11 Atelectasis; M86.9 Osteomyelitis, unspecified; R65.20 Severe sepsis without septic shock; I25.2 Old myocardial infarction; L89.156 Pressure-induced deep tissue damage of sacral region; N18.9 Chronic kidney disease, unspecified; G30.9 Alzheimer's disease, unspecified; E11.22 Type 2 diabetes mellitus with diabetic chronic kidney disease; D69.6 Thrombocytopenia, unspecified; Z74.09 Other reduced mobility; M19.90 Unspecified osteoarthritis, unspecified site; M81.0 Age-related osteoporosis without current pathological fracture; N40.0 Benign prostatic hyperplasia without lower urinary tract symptoms; K21.9 Gastro-esophageal reflux disease without esophagitis; Z96.641 Presence of right artificial hip joint; Z87.440 Personal history of urinary (tract) infections; Z86.79 Personal history of other diseases of the circulatory system; Z85.828 Personal history of other malignant neoplasm of skin; Z82.49 Family history of ischemic heart disease and other diseases of the circulatory system; Z79.899 Other long term (current) drug therapy; Z79.84 Long term (current) use of oral hypoglycemic drugs; R13.10 Dysphagia, unspecified; L30.4 Erythema intertrigo; L89.92 Pressure ulcer of unspecified site, stage 2; D50.9 Iron deficiency anemia, unspecified; I70.0 Atherosclerosis of aorta; I25.10 Atherosclerotic heart disease of native coronary artery without angina pectoris; Z79.82 Long term (current) use of aspirin; I08.3 Combined rheumatic disorders of mitral, aortic and tricuspid valves; E11.69 Type 2 diabetes mellitus with other specified complication
CPT/HCPCS: 36415; 36600; 70030-TC; 71045; 71275; 73700; 74018; 82378; 83550; 83605; 83735; 84100; 84443; 85025; 85730; 86850; 86900; 86901; 86920; 87040; 87070; 87086; 87400; 93005; 93307; 94002; 94003; A4663; G0378; J0330; J0696; J0885; J1580; J1644; J1815; J1940; J2543; J2916; J3370; J3475; J3480; J3490; J7030; J7040; J7050; J7060; P9016-BL; P9021; Q9967